=== PATIENT | female | born 1950 | race Caucasian/White ===

== ENCOUNTER 2020-05-20 12:46 | Outpatient (CLI) | payer MEDICARE, OTHER, SELFPAY ==
--- NOTE | 2020-05-20 12:53 | MM_ITS ---
WS: [id number] BILATERAL SCREENING DIGITAL MAMMOGRAM WITH CAD HISTORY: SCREENING COMPARISON: 11/24/2017 Bilateral CC and MLO views submitted. Computer aided detection analyzed. Study is compromised by limited positioning and compression. Breast composition: There are scattered areas of fibroglandular density. No suspicious masses, microc alcifications or architectural distortion. The entire breasts are not included nor positioned correct ly for this examination. MM/[place] [id number] IMPRESSION: BI-RADS: 2-Benign FOLLOW UP: 1 Year Follow-up
== END 2020-05-20 12:47 | disposition home or self-care (01) ==
LOC: RADSHAW 12:52
PROVIDERS: PCP Family Medicine; Visit Provider Family Medicine
DX: Z12.31 Encounter for screening mammogram for malignant neoplasm of breast (principal)
CPT/HCPCS: 77067

== ENCOUNTER → 2022-04-16 13:38 | Outpatient (BNVA) | payer MEDICARE, OTHER, SELFPAY | PROVIDERS: PCP Family Medicine; Visit Provider Family Medicine | DX: I48.91 Unspecified atrial fibrillation (principal); E78.5 Hyperlipidemia, unspecified; Z00.00 Encounter for general adult medical examination without abnormal findings; F84.0 Autistic disorder | CPT/HCPCS: 80053 ==

== ENCOUNTER 2023-01-03 20:32 | Emergency (ER) | payer MEDICARE, OTHER, SELFPAY ==
[2023-01-03 20:36] VITALS: BP 146/70; PULSE 66; RESP 17; TEMP 36.4; O2SAT 93
--- NOTE | 2023-01-03 20:39 | XRR_ITS ---
PROCEDURE INFORMATION: Exam: XR Chest Exam date and time: 01/03/2023 8:48 PM Age: 72 years old Clinical indication: Other: General weakness TECHNIQUE: Imaging protocol: Radiologic exam of the chest. Views: 1 view. COMPARISON: CR XR chest 1V [id number] 10/21/2016 8:33 PM FINDINGS: Lungs: No consolidation. Pleural spaces: Unremarkable. No pleural effusion. No pneumothorax. Heart/Mediastinum: No cardiomegaly. Bones/joints: No acute fracture. XR/XR chest 1V portable [id number] IMPRESSION: No acute findings.
--- NOTE | 2023-01-03 20:39 | CTR_ITS ---
PROCEDURE INFORMATION: Exam: CT Head Without Contrast Exam date and time: 01/03/2023 9:05 PM Age: 72 years old Clinical indication: Other: General weakness TECHNIQUE: Imaging protocol: Computed tomography of the head without contrast. Radiation optimization: All CT scans at this facility use at least one of these dose optimization techniques: automated exposure control; mA and/or kV adjustment per patient size (includes targeted exams where dose is matched to clinical indication); or iterative reconstruction. REPORTING DATA: Count of CT and Cardiac NM exams in prior 12 months: This patient has received 0 known CTs and 0 known cardiac nuclear medicine studies in the 12 months prior to the current study. COMPARISON: No relevant prior studies available. RADIATION DOSE METRICS: Total DLP (mGy-cm): 1023.48 FINDINGS: Brain: No hemorrhage. No edema, mass effect or midline shift. Periventricular and deep white matter hypodensities compatible with chronic microvascular ischemic changes. Cerebral ventricles: No ventriculomegaly. Paranasal sinuses: Visualized sinuses are unremarkable. No fluid levels. Mastoid air cells: No mastoid effusion. Bones/joints: No acute fracture. Soft tissues: Unremarkable. CT/CT head wo con* [id number] IMPRESSION: No acute intracranial abnormality.
--- NOTE | 2023-01-03 20:40 | W.ED.NEUROSD ---
HPI - Neuro Symptoms/Deficit General: Chief Complaint: Dizziness Stated Complaint: Staring into Space, Lethagic Time Seen by Provider: 01/03/23 20:35 Source: patient Mode of arrival: ambulatory Limitations: no limitations History of Present Illness: 72-year-old female who states she had 2 episodes today where she just stared off in space she states she has had a funny feeling in her head she denies any headache denies any chest pain. Patient denies any focal deficits denies any weakness she states she feels completely fine currently she does have a history of A-fib. Associated symptoms: Deny chest pain, headache(s), nausea or vomiting Review of Systems Const: Denies: fever(s) or chills Eyes: Denies: blurry vision or eye discomfort ENMT: Denies: throat pain or dental pain Card: Denies: chest pain Resp: Denies: dyspnea GI: Denies: abdominal pain, nausea, vomiting or diarrhea : Denies: dysuria Musc: Denies: neck pain or back pain Skin/Breast: Denies: rash Neuro: Denies: headache(s) PFSH ED PFSH: Medical History Atrial fibrillation Autism Hyperlipidemia NIH stroke score NIHSS: Level Of Consciousness - 1a: 0 Level Of Consciousness Questions - 1b: Both Correct Level Of Consciousness Commands - 1c: Both Correct Best Gaze - 2: Normal Visual Rashid - 3: No Visual Loss Facial Palsy - 4: Normal Motor Arm Right - 5: No Drift Motor Arm Left - 5: No Drift Motor Leg Right - 6: No Drift Motor Leg Left - 6: No Drift Limb Ataxia - 7: Absent Sensory - 8: Normal Best Language - 9: No Aphasia Dysarthia - 10: Normal Extinction And Inattention - 11: 0 Score: Total Score: 0 Physical Exam Const: COMMON NORMALS: no acute distress, patient oriented x3 and healthy appearing HENMT: COMMON NORMALS: normocephalic and atraumatic HEAD & SCALP: normocephalic and atraumatic Eye: COMMON NORMALS: Equal, round and reactive pupils present and EOMs intact bilaterally PUPIL: Yes Equal, round and reactive pupils present Neck/C-Spine: COMMON NORMALS: full ROM and supple Chest: COMMONS NORMALS: normal inspection of the chest and normal palpation of entire chest wall Resp: COMMON NORMALS: normal respiratory effort, No retractions, No use of accessory muscles and clear to auscultation bilaterally AUSCULTATION: clear to auscultation bilaterally Cardio: COMMON NORMALS: regular rate, regular rhythm and No murmurs present (Cardio) RATE: regular rate RHYTHM: regular rhythm GI: COMMON NORMALS: Normal to inspection, nondistended, normoactive bowel sounds present, Soft to palpation, non-tender and no masses PALPATION: Yes Soft to palpation Extremity: COMMON NORMALS: normal to inspection and full ROM Neuro: COMMON NORMALS: patient oriented x3, moves all extremities and no focal motor deficits CRANIAL NERVES: Yes CN normal except as noted Psych: COMMON NORMALS: mental status grossly normal, Normal thought process present and cooperative THOUGHT PROCESS: Normal thought process present Skin: COMMON NORMALS: no rashes or lesions noted and no wounds GENERAL SKIN EXAM: no rashes or lesions noted Course Vital Signs: Vital signs: Vital Signs Temperature 97.6 F 01/03/23 20:36 Pulse Rate 110 H 01/03/23 21:00 Respiratory Rate 17 01/03/23 20:36 Blood Pressure 146/70 01/03/23 21:00 Pulse Oximetry 97 01/03/23 21:00 Oxygen Delivery Me thod Room Air 01/03/23 20:36 MDM - Neuro Symptoms/Deficit Medical Decision Making Patient presents here with slight weakness she is well-appearing here blood work CT head is all normal she has been asymptomatic here no signs of a stroke she is stable for discharge she is follow-up with PCP and return if worsening. Lab Data 01/03/23 20:53 01/03/23 20:53 Radiology Impressions Chest X-Ray 01/03/23 20:39 IMPRESSION: No acute findings. Head CT 01/03/23 20:39 IMPRESSION: No acute intracranial abnormality. Laboratory Results WBC 9.62 10^3/uL (3.29-11.43) 01/03/23 20:53 RBC 4.40 10^6/uL (3.85-5.65) 01/03/23 20:53 Hgb 13.10 g/dL (11.27-16.99) 01/03/23 20:53 Hct 41.4 % (36-47) 01/03/23 20:53 MCV 94.1 fl (85-98) 01/03/23 20:53 MCH 29.8 pg (27-33) 01/03/23 20:53 MCHC 31.6 g/dL (30-55) 01/03/23 20:53 RDW 13.4 % (12.1-15.1) 01/03/23 20:53 Plt Count 273 10^3/cmm (157-399) 01/03/23 20:53 MPV 11.2 fL (7.4-10.4) H 01/03/23 20:53 Neut % (Auto) 59.6 % 01/03/23 20:53 Lymph % (Auto) 29.5 % 01/03/23 20:53 [place] % (Auto) 9.1 % 01/03/23 20:53 Eos % (Auto) 0.7 % 01/03/23 20:53 Baso % (Auto) 0.8 % 01/03/23 20:53 Neut # (Auto) 5.72 10^3/uL (1.8-7.7) 01/03/23 20:53 Lymph # (Auto) 2.8 10^3/uL (0.8-4.8) 01/03/23 20:53 [place] # (Auto) 0.9 10^3/uL (0.2-0.9) 01/03/23 20:53 Eos # (Auto) 0.1 10^3/uL (0.0-0.8) 01/03/23 20:53 Baso # (Auto) 0.1 10^3/uL (0.0-0.1) 01/03/23 20:53 Nucleated RBC % (auto) 0 % 01/03/23 20:53 Nucleated RBCs # 0.0 /100WBC 01/03/23 20:53 Sodium 141 mmol/L (136-145) 01/03/23 20:53 Potassium 4.6 mmol/L (3.5-5.1) 01/03/23 20:53 Chloride 103 mmol/L (98-107) 01/03/23 20:53 Carbon Dioxide 29 mmol/L (22-29) 01/03/23 20:53 Anion Gap 13.6 (5-19) 01/03/23 20:53 BUN 17 mg/dL (8-23) 01/03/23 20:53 Creatinine 0.6 mg/dL (0.5-0.9) 01/03/23 20:53 GFR Calculation 98.8 mL/min (90-130) 01/03/23 20:53 Glucose 124 mg/dL (65-115) H 01/03/23 20:53 POC Glucose 106 mg/dL (70-110) 01/03/23 21:44 Calculated Osmolality 295 mOsm/kg (285-295) 01/03/23 20:53 Calcium 9.6 mg/dL (8.5-10.5) 01/03/23 20:53 Total Bilirubin 0.2 mg/dL (0.15-1.2) 01/03/23 20:53 AST 21 U/L (0-32) 01/03/23 20:53 ALT 20 U/L (0-33) 01/03/23 20:53 Alkaline Phosphatase 61 U/L (35-105) 01/03/23 20:53 Total Protein 7.3 g/dL (6.6-8.7) 01/03/23 20:53 Albumin 4.3 g/dL (3.5-5.2) 01/03/23 20:53 Globulin 3.0 g/dL (1.3-4.6) 01/03/23 20:53 Urine Color Light yellow (Yellow) 01/03/23 21:47 Urine Appearance Clear (CLEAR) 01/03/23 21:47 Urine pH 7 (5-7) 01/03/23 21:47 Ur Specific [place] 1.005 (1.005-1.030) 01/03/23 21:47 Urine Protein Neg (Negative) 01/03/23 21:47 Urine Glucose (UA) Norm (Normal) 01/03/23 21:47 Urine Ketones Negative (Negative) 01/03/23 21:47 Urine Blood Neg (Negative) 01/03/23 21:47 Urine Nitrate Negative (Negative) 01/03/23 21:47 Urine Bilirubin Neg (Negative) 01/03/23 21:47 Urine Urobilinogen Neg mg/dL (Negative) 01/03/23 21:47 Ur Leukocyte Esterase Negative (Negative) 01/03/23 21:47 Discharge Plan Discharge Patient Disposition: Home Clinical Impression: Weakness Condition: Stable Prescriptions: No Action metoprolol succinate 25 mg tablet extended release 24 hr See Rx Instructions .ROUTE .COMPLEX Qty: 90 3RF Dose Instruction: TAKE 1 TABLET BY MOUTH EVERY DAY Rx Instructions: TAKE 1 TABLET BY MOUTH EVERY DAY aspirin [Adult Aspirin Regimen] 81 mg tablet,delayed release (DR/EC) 81 mg PO DAILY Qty: 90 0RF atorvastatin 40 mg tablet See Rx Instructions .ROUTE .COMPLEX Qty: 90 3RF Dose Instruction: TAKE 1 TABLET BY MOUTH EVERY DAY Rx Instructions: TAKE 1 TABLET BY MOUTH EVERY DAY Discharge Orders: Discharge ED (Routine); Ordered 01/03/23 Ordered By: Alina Larios Referrals: Keny Jimenez MD [Primary Care Provider] - 1-3 days Discharge Diet: Advance as tolerated Discharge Activity: Resume usual activity Patient Instructions: Weakness (ED) Coding Level of Care Code ED [employer] for Isatu Metcalf
--- NOTE | 2023-01-03 20:44 | ECG_ITS ---
[facility] Test Date: 2023-01-03 Pat Name: Mayela Martino Department: Room: Gender: Female Pediatric Immunologist: : 1950 Requested By: Alina Larios Order Number: [id number] Marimar MD: Bill Du M.D. Measurements Intervals [place] Rate: 98 P: 49 [place]: 161 QRS: 57 QRSD: 101 T: 63 QT: 356 QTc: 455 Interpretive Statements SINUS RHYTHM WITH FREQUENT SUPRAVENTRICULAR PREMATURE COMPLEXES INCOMPLETE RIGHT BUNDLE BRANCH BLOCK [90+ ms QRS DURATION, TERMINAL R IN V1/V2, 40+ ms S IN I/aVL/V4/V5/V6] ABNORMAL RHYTHM ECG Compared to ECG 10/21/2016 19:51:05 Supraventricular tachycardia no longer present ST (T wave) deviation no longer present Electronically Signed On 01-04-2023 22:32:19 CDT by Bill Du M.D. [email or web address] hospitalBiomass [email or web address]/[id number] f
[2023-01-03 21:00] VITALS: BP 146/70; PULSE 110; O2SAT 97
[2023-01-03 21:15] LABS: Basophils # 0.1 10^3/uL (0.0-0.1); Basophils % 0.8 %; Eosinophils # 0.1 10^3/uL (0.0-0.8); Eosinophils % 0.7 %; Hematocrit 41.4 % (36-47); Lymphocytes # 2.8 10^3/uL (0.8-4.8); Lymphocytes % 29.5 %; Mean Corpuscular HGB Conc 31.6 g/dL (30-55); Mean Corpuscular Hemoglobin 29.8 pg (27-33); Mean Corpuscular Volume 94.1 fl (85-98); Mean Platelet Volume 11.2 fL (7.4-10.4); Monocytes # 0.9 10^3/uL (0.2-0.9); Monocytes % 9.1 %; Neutrophils # 5.72 10^3/uL (1.8-7.7); Neutrophils % 59.6 %; Nucleated Red Blood Cells % 0 %; Platelet Count 273 10^3/cmm (157-399); Red Cell Distribution Width 13.4 % (12.1-15.1); White Blood Count 9.62 10^3/uL (3.29-11.43)
[2023-01-03 21:25] LABS: Alanine Aminotransferase 20 U/L (0-33); Albumin Level 4.3 g/dL (3.5-5.2); Alkaline Phosphatase 61 U/L (35-105); Anion Gap 13.6 (5-19); Aspartate Amino Transferase 21 U/L (0-32); Blood Urea Nitrogen 17 mg/dL (8-23); Calcium 9.6 mg/dL (8.5-10.5); Carbon Dioxide 29 mmol/L (22-29); Chloride 103 mmol/L (98-107); Glomerular Filtration Rate 98.8 mL/min (90-130); Glucose 124 mg/dL (65-115); Osmolality Calculated 295 mOsm/kg (285-295); Potassium 4.6 mmol/L (3.5-5.1); Sodium 141 mmol/L (136-145); Total Bilirubin 0.2 mg/dL (0.15-1.2); Total Protein 7.3 g/dL (6.6-8.7)
[2023-01-03 21:52] LABS: Glucose Point of Care 106 mg/dL (70-110)
[2023-01-03 22:00] LABS: Add Urine Microscopic? NO; Charge for UA Resulting for Rev
[2023-01-03 22:01] LABS: Bilirubin Urine Neg (Negative); Blood Urine Neg (Negative); Glucose Urine UA Norm (Normal); Ketones Urine Negative (Negative); Leukocyte Esterase Urine Negative (Negative); Nitrate Urine Negative (Negative); Protein Urine Neg (Negative); Specific Gravity, Urine 1.005 (1.005-1.030); Urine Appearance Clear (CLEAR); Urine Color Light yellow (Yellow); Urobilinogen Urine Neg (Negative); pH Urine 7 (5-7)
[2023-01-03 22:21] VITALS: BP 130/98; PULSE 105; O2SAT 98
== END 2023-01-03 22:23 | disposition home or self-care (01) ==
PROVIDERS: Emergency Provider Emergency Medicine; PCP Family Medicine
DX: R53.1 Weakness (principal); Z79.82 Long term (current) use of aspirin; F84.0 Autistic disorder; E78.5 Hyperlipidemia, unspecified
CPT/HCPCS: 36416; 70450; 71045; 80053; 81003; 82962; 85025; 93005; 99285

== ENCOUNTER → 2024-02-22 08:05 | Outpatient (BNVA) | payer MEDICARE, OTHER, SELFPAY | PROVIDERS: PCP Family Medicine; Visit Provider Family Medicine | DX: Z00.00 Encounter for general adult medical examination without abnormal findings (principal); R73.9 Hyperglycemia, unspecified; E78.5 Hyperlipidemia, unspecified | CPT/HCPCS: 80053; 80061; 83036 ==

== ENCOUNTER 2024-10-05 16:45 | Emergency (ER) | payer MEDICARE, OTHER, SELFPAY ==
[2024-10-05 16:50] VITALS: BP 158/85; PULSE 56; RESP 16; TEMP 36.4; O2SAT 93; BMI 21.6
--- NOTE | 2024-10-05 17:40 | XRR_ITS ---
PROCEDURE INFORMATION: Exam: XR Chest Exam date and time: 10/05/2024 6:29 PM Age: 74 years old Clinical indication: Injury or trauma; Fall; Blunt trauma (contusions or hematomas); Additional info: Fall with contusion TECHNIQUE: Imaging protocol: Radiologic exam of the chest. Views: 1 view. COMPARISON: CR XR chest 1V portable [id number] 01/03/2023 8:48 PM FINDINGS: Lungs: Unremarkable. No consolidation. Pleural spaces: Unremarkable. No pleural effusion. No pneumothorax. Heart/Mediastinum: Unremarkable. No cardiomegaly. Bones/joints: Visualized osseous structures are intact. XR/XR chest 1V portable [id number] IMPRESSION: No acute findings.
--- NOTE | 2024-10-05 17:40 | XRR_ITS ---
PROCEDURE INFORMATION: Exam: XR Left Shoulder Exam date and time: 10/05/2024 6:34 PM Age: 74 years old Clinical indication: Injury or trauma; Fall; Blunt trauma (contusions or hematomas); Shoulder; Left; Additional info: Fall, contusion TECHNIQUE: Imaging protocol: Radiologic exam of the left shoulder. Views: 2 or more views. COMPARISON: CR (CHEST, ) 10/05/2024 6:29 PM FINDINGS: Bones/joints: Comminuted fracture through the humeral head and neck. There is inferior migration of the humeral head in the glenohumeral joint space suggesting a large hemarthrosis. Soft tissues: Normal. XR/XR shoulder LT min 2V* [id number] IMPRESSION: Comminuted fracture of the humeral head and neck.
--- NOTE | 2024-10-05 17:40 | XRR_ITS ---
PROCEDURE INFORMATION: Exam: XR Left Elbow Exam date and time: 10/05/2024 7:30 PM Age: 74 years old Clinical indication: Injury or trauma; Fall; Blunt trauma (contusions or hematomas); Elbow; Left; Additional info: Fall, contusion TECHNIQUE: Imaging protocol: Radiologic exam of the left elbow. Views: 3 or more views. COMPARISON: CR (UP EXM, ) 10/05/2024 6:43 PM FINDINGS: Bones/joints: Old fracture deformity of the distal humerus with intact screws in this region. No acute fracture. Soft tissues: Normal. XR/XR elbow LT min 3V* [id number] IMPRESSION: No acute findings.
--- NOTE | 2024-10-05 17:40 | XRR_ITS ---
PROCEDURE INFORMATION: Exam: XR Left Hip Exam date and time: 10/05/2024 7:23 PM Age: 74 years old Clinical indication: Injury or trauma; Fall; Blunt trauma (contusions or hematomas); Left; Hip; Additional info: Left hip contusion, w pelvis TECHNIQUE: Imaging protocol: Radiologic exam of the left hip. Views: 2 or 3 views hip with pelvis when performed. COMPARISON: No relevant prior studies available. FINDINGS: Bones/joints: Unremarkable. No acute fracture. Soft tissues: Unremarkable. XR/XR hip LT 2-3V wo/w pel* [id number] IMPRESSION: No acute findings.
--- NOTE | 2024-10-05 17:54 | XRR_ITS ---
PROCEDURE INFORMATION: Exam: XR Left Wrist Exam date and time: 10/05/2024 6:43 PM Age: 74 years old Clinical indication: Injury or trauma; Fall; Blunt trauma (contusions or hematomas); Wrist; Left; Prior surgery; Surgery date: 6+ months; Surgery type: Fixation; Additional info: Fall contusion TECHNIQUE: Imaging protocol: Radiologic exam of the left wrist. Views: 3 or more views. COMPARISON: No relevant prior studies available. FINDINGS: Bones/joints: Intact ORIF hardware in the distal radius. No acute fracture. Soft tissues: Normal. XR/XR wrist LT min 3V* [id number] IMPRESSION: No acute findings.
--- NOTE | 2024-10-05 18:17 | ED_ITS ---
HPI - Fall 2 General: Chief Complaint: Fall Stated Complaint: FALL - LEFT ARM PAIN Time Seen by Provider: 10/05/24 17:22 History of Present Illness: Patient is a 74-year-old female that resides at [facility] residential home that had a fall earlier today. Unknown time. Patient called her family, whom called EMS. Patient was on the floor when EMS arrived and assisted to cot. She complains of pain in her left arm, left hip, left shoulder. She is in splint via EMS. Patient believes that she had a loss of her balance. Denies any LOC or any other concerns. She did not injure her head. Not on anticoagulation. Associated symptoms-after fall: Denies abdominal pain, chest pain or headache(s) Related Data Previous Rx's ?Medication ?Instructions ?Recorded aspirin 81 mg tablet,delayed 81 mg PO DAILY #90 tabs 1 06/17/21 release (Adult Aspirin Regimen) fluoxetine 20 mg capsule 20 mg PO DAILY #30 caps 11/01 07/24 metoprolol succinate 50 mg See Rx Instructions .Route 11/23/23 tablet,extended release 24 hr .COMPLEX #30 tabs atorvastatin 40 mg tablet See Rx Instructions .Route 1 .COMPLEX #90 tabs Allergies Allergy/AdvReac Type Severity Reaction Status Date / Time No Known Allergies Allergy Unverified 03/18/22 11:47 Review of Systems 2 General: Reports: 10 or more systems reviewed and unremarkable except in HPI and below Const: Denies: fever(s) or chills Eyes: Denies: change in vision or blurry vision ENMT: Denies: throat pain or odynophagia Card: Denies: chest pain or palpitations Resp: Denies: dyspnea or productive cough GI: Denies: abdominal pain, nausea or vomiting : Denies: flank pain or difficulty voiding Musc: Reports: extremity pain, joint pain, joint stiffness and limited range of motion Skin/Breast: Denies: rash or pruritus Neuro: Denies: headache(s), numbness in extremities or weakness in extremities Psych: Denies: anxiety or depression Tony/Lymph: Denies: easy bruising or easy bleeding All/Imm: Denies: urticaria or throat swelling PFSH ED 2 PFSH: Medical History Autism Hyperlipidemia Atrial fibrillation Social History Smoking and tobacco/nicotine status: unknown if used tobacco/nicotine Physical Exam 2 Const: COMMON NORMALS: no acute distress, average body habitus, patient oriented x3 and alert GENERAL APPEARANCE: cooperative and comfortable HENMT: COMMON NORMALS: normocephalic and atraumatic HEAD & SCALP: n ormocephalic and atraumatic Eye: COMMON NORMALS: Equal, round and reactive pupils present, EOMs intact bilaterally, conjunctivae normal, no scleral icterus and no papilledema C ONJUNCTIVA: Yes conjunctivae normal SCLERA: sclerae normal PUPIL: Yes Equal, round and reactive pupils present EOM: Yes EOM abnormal DIRECT OPHTHALMOSCOPY: Yes no papilledema Neck/C-Spine: COMMON NORMALS: full ROM, no lymphadenopathy, supple and no JVD GENERAL: Yes normal visual inspection, Yes trachea midline, No anterior neck swelling and No tender CERVICAL SPINE: Yes cervical ROM normal Chest: COMMONS NORMALS: normal inspection of the chest and normal palpation of entire chest wall Resp: COMMON NORMALS: normal respiratory effort, No retractions, No use of accessory muscles and clear to auscultation bilaterally EFFORT & INSPECTION: Yes able to speak in complete sentences and Yes symmetric chest movement A USCULTATION: clear to auscultation bilaterally Cardio: COMMON NORMALS: no JVD, regular rhythm, S1 normal heart sound present, S2 normal heart sound present and Peripheral pulses 2+ throughout RHYTHM: r egular rhythm HEART SOUNDS: S1 normal heart sound present and S2 normal heart sound present PERIPHERAL PULSES: Peripheral pulses 2+ throughout GI: COMMON NORMALS: Normal to inspection, nondistended, normoactive bowel sounds present and Soft to palpation INSPECTION: Yes normal to inspection AUSCULTATION: Yes normoactive bowel sounds PALPATION: Yes Soft to palpation : COMMON NORMALS: Yes no CVA tenderness BLADDER/KIDNEY EXAM: Yes no CVA tenderness Back/Pelvis: COMMON NORMALS: no CVA tenderness Extremity: GENERAL: Yes normal exam except as noted LEFT UPPER EXTREMITY: Y es shoulder joint Left shoulder joint: No ROM and Yes neurovascular exam, Yes clavicle and Yes wrist (pain with axilla load) LEFT LOWER EXTREMITY: Yes hip joint (no pain on palpation) Neuro: COMMON NORMALS: patient oriented x3 and CN's II-XII intact bilaterally SENSORIUM/ORIENTATION: Yes alert Psych: COMMON NORMALS: mental status grossly normal, Normal thought process present and speech normal ATTITUDE: Yes calm SPEECH: Yes normal speech THOUGHT PROCESS: Normal thought process present Skin: NAILS: normal Course 2 Vital Signs: Vital signs: Vital Signs Temperature 97.6 F 10/05/24 16:50 Pulse Rate 56 L 10/05/24 16:50 Respiratory Rate 16 10/05/24 16:50 Blood Pressure 158/85 10/05/24 16:50 Pulse Oximetry 93 10/05/24 16:50 Oxygen Delivery Me thod Room Air 10/05/24 16:50 MDM - Fall Medical Decision Making 74-year-old woman with slip and fall, as she was getting up, lost her balance. Required sitting in the floor until EMS arrived. She has pain to her left shoulder, left elbow, and left wrist. No significant pain on abdominal examination/hip, however given patient's concern we will x-ray. She does not have LOC, was not dazed, remembers all the events, and is not on anticoagulation. No need for CT of head or C-spine at this time. Will x-ray current concerns. X-ray shows left comminuted humeral head. Discussed with on-call orthopedist, recommends sling, follow-up in 7-10 days. Patient's [id number]'s concern is patient lives alone. No additional concerns that patient would need observation or inpatient criteria. She has not been able to void due to pain. Offered analgesic. [id number] would like analgesic to wait until patient is leaving. Patient does have association of leukocytosis which could be from stress demargination is most likely. No reason to hold patient with current vital signs/how patient looks without any red flags for septic workup. Urine analysis can be done on an outpatient basis. Lab Data 10/05/24 20:35 10/05/24 20:35 Radiology Impressions Chest X-Ray 10/05/24 17:40 IMPRESSION: No acute findings. Elbow X-Ray 10/05/24 17:40 IMPRESSION: No acute findings. Hip/Pelvis X-Ray 10/05/24 17:40 IMPRESSION: No acute findings. Shoulder X-Ray 10/05/24 17:40 IMPRESSION: Comminuted fracture of the humeral head and neck. Wrist X-Ray 10/05/24 17:54 IMPRESSION: No acute findings. Laboratory Results WBC 22.57 10^3/uL (3.29-11.43) H 10/05/24 20:35 RBC 4.45 10^6/uL (3.85-5.65) 10/05/24 20:35 Hgb 13.20 g/dL (11.27-16.99) 10/05/24 20:35 Hct 42.3 % (36-47) 10/05/24 20: MCV 95.1 fl (85-98) 10/05/24 20: MCH 29.7 pg (27-33) 10/05/24 20: MCHC 31.2 g/dL (30-55) 10/05/24: RDW 13.4 % (12.1-15.1) 10/05/24 20:35 Plt Count 302 10^3/cmm (157-399) 10/05/24 20: MPV 11.4 fL (7.4-10.4) H 10/05/24 20:35 Neut % (Auto) 90.8 % 10/05/24 20:35 Lymph % (Auto) 4.5 % 10/05/24 20:35 [place] % (Auto) 3.5 % 10/05/24 20:35 Eos % (Auto) 0.0 % 10/05/24 20:35 Baso % (Auto) 0.4 % 10/05/24 20:35 Neut # (Auto) 20.50 10^3/uL (1.8-7.7) H 10/05/24 20:35 Lymph # (Auto) 1.0 10^3/uL (0.8-4.8) 10/05/24 20:35 [place] # (Auto) 0.8 10^3/uL (0.2-0.9) 10/05/24 20:35 Eos # (Auto) 0.0 10^3/uL (0.0-0.8) 10/05/24 20:35 Baso # (Auto) 0.1 10^3/uL (0.0-0.1) 10/05/24 20:35 Nucleated RBC % (auto) 0 % 10/05/24 20:35 Nucleated RBCs # 0.0 /100WBC 10/05/24 20:35 Sodium 138 mmol/L (136-145) 10/05/24 20:35 Potassium 4.2 mmol/L (3.5-5.1) 10/05/24 20:35 Chloride 101 mmol/L (98-107) 10/05/24 20:35 Carbon Dioxide 25 mmol/L (22-29) 10/05/24 20:35 Anion Gap 16.2 (5-19) 10/05/24 20:35 BUN 22 mg/dL (8-23) 10/05/24 20:35 Creatinine 0.6 mg/dL (0.5-0.9) 10/05/24 20:35 GFR Calculation Not Reportable 10/05/24 20:35 Glucose 133 mg/dL (65-115) H 10/05/24 20:35 Calculated Osmolality 291 mOsm/kg (285-295) 10/05/24 20:35 Calcium 9.9 mg/dL (8.5-10.5) 10/05/24 20:35 Total Bilirubin 0.5 mg/dL (0.15-1.2) 10/05/24 20:35 AST 24 U/L (0-32) 10/05/24 20:35 ALT 26 U/L (0-33) 10/05/24 20:35 Alkaline Phosphatase 70 U/L (35-105) 10/05/24 20:35 Total Protein 8.0 g/dL (6.6-8.7) 10/05/24 20:35 Albumin 4.4 g/dL (3.5-5.2) 10/05/24 20:35 Globulin 3.6 g/dL (1.3-4.6) 10/05/24 20:35 XR interpretation done by ED provider, pending radiology final review ED provider radiology interpretation(s): Comminuted left humeral head fracture. Discharge Plan Discharge Patient Disposition: Home Clinical Impression: Closed comminuted left humeral fracture Qualifiers: Encounter type: initial encounter Humerus Location: shaft Fracture alignment: d isplaced Qualified Code(s): S42.352A - Displaced comminuted fracture of shaft of humerus, left arm, initial encounter for closed fracture Leukocytosis Qualifiers: Leukocytosis type: leukemoid reaction Qualified Code(s): D72.823 - Leukemoid reaction Condition: Stable Prescriptions: No Action aspirin [Adult Aspirin Regimen] 81 mg tablet,delayed release (DR/EC) 81 mg PO DAILY Qty: 90 0RF atorvastatin 40 mg tablet See Rx Instructions .ROUTE .COMPLEX Qty: 90 3RF Dose Instruction: TAKE 1 TABLET BY MOUTH EVERY DAY Rx Instructions: TAKE 1 TABLET BY MOUTH EVERY DAY fluoxetine 20 mg capsule 20 mg PO DAILY Qty: 30 11RF metoprolol succinate 50 mg tablet extended release 24 hr See Rx Instructions .ROUTE .COMPLEX Qty: 30 11RF Dose Instruction: TAKE 1 TABLET BY MOUTH EVERY DAY Rx Instructions: TAKE 1 TABLET BY MOUTH EVERY DAY Discharge Orders: Discharge ED (Routine); Ordered 10/05/24 Ordered By: Maribel Guerra Referrals: Keny Jimenez MD [Primary Care Provider, Family Practice] Patient Instructions: Opioid Safety, Pain Management Activity Restrictions/Additional Instructions: Add Senna S to Miralax with pain medication Follow up with Orthopedics in 7-10 days Wear the sling as advised Follow-up with primary care physician Return to ED with further issues Print Language: Serbian Coding Level of Care Code ED Preforming Machine Operator for Isatu Metcalf
[2024-10-05 21:05] LABS: Basophils # 0.1 10^3/uL (0.0-0.1); Basophils % 0.4 %; Hematocrit 42.3 % (36-47); Lymphocytes % 4.5 %; Mean Corpuscular HGB Conc 31.2 g/dL (30-55); Mean Corpuscular Hemoglobin 29.7 pg (27-33); Mean Corpuscular Volume 95.1 fl (85-98); Mean Platelet Volume 11.4 fL (7.4-10.4); Monocytes # 0.8 10^3/uL (0.2-0.9); Monocytes % 3.5 %; Neutrophils % 90.8 %; Nucleated Red Blood Cells % 0 %; Platelet Count 302 10^3/cmm (157-399); Red Blood Count 4.45 10^6/uL (3.85-5.65); Red Cell Distribution Width 13.4 % (12.1-15.1); White Blood Count 22.57 10^3/uL (3.29-11.43)
[2024-10-05 21:07] LABS: Alanine Aminotransferase 26 U/L (0-33); Albumin Level 4.4 g/dL (3.5-5.2); Alkaline Phosphatase 70 U/L (35-105); Aspartate Amino Transferase 24 U/L (0-32); Blood Urea Nitrogen 22 mg/dL (8-23); Calcium 9.9 mg/dL (8.5-10.5); Carbon Dioxide 25 mmol/L (22-29); Chloride 101 mmol/L (98-107); Creatinine Clr Calc Pharmacy 57.9874; Globulin 3.6 g/dL (1.3-4.6); Glucose 133 mg/dL (65-115); Osmolality Calculated 291 mOsm/kg (285-295); Sodium 138 mmol/L (136-145); Total Bilirubin 0.5 mg/dL (0.15-1.2)
[2024-10-05 21:11] LABS: Anion Gap 16.2 (5-19); Potassium 4.2 mmol/L (3.5-5.1)
[2024-10-05] MEDS: HYDROcodone-acetaminophen 10-325 mg Tablet 1 TAB PO (21:36)
== END 2024-10-05 22:42 | disposition home or self-care (01) ==
PROVIDERS: Emergency Provider Physician Assistant; PCP Family Medicine
DX: S42.352A Displaced comminuted fracture of shaft of humerus, left arm, initial encounter for closed fracture (principal); Z00-Z99 Factors influencing health status and contact with health services; Z79.82 Long term (current) use of aspirin; E78.5 Hyperlipidemia, unspecified; W19.XXXA Unspecified fall, initial encounter
CPT/HCPCS: 36415; 71045; 73030; 73080; 73110; 73502; 80053; 85025; 99284; J9999

== ENCOUNTER 2024-10-07 10:59 | Inpatient (IN) | payer MEDICARE, OTHER, SELFPAY ==
[2024-10-07] VITALS (20 sets, daily range): BP systolic 106–165; BP diastolic 54–86; PULSE 64–88; RESP 16–28; TEMP 36.1–36.7; O2SAT 88–98; BMI 26.6
--- NOTE | 2024-10-07 11:13 | XRR_ITS ---
PROCEDURE INFORMATION: Exam: XR Left Humerus Exam date and time: 10/07/2024 11:34 AM Age: 74 years old Clinical indication: Injury or trauma; Fall; Blunt trauma (contusions or hematomas); Arm, upper; Left; Prior surgery; Surgery date: 6+ months; Surgery type: Lt elbow; Additional info: Repeated fall TECHNIQUE: Imaging protocol: Radiologic exam of the left humerus. Views: 2 or more views. COMPARISON: CR (CHEST, ) 10/05/2024 6:34 PM FINDINGS: Bones/joints: Comminuted displaced fracture of the humeral head the distal humerus shows the [address] No additional bone abnormality of the left humerus is visible. Soft tissues: Soft tissue fusion is seen in the shoulder likely associated with fracture. XR/[place] [id number] IMPRESSION: No acute findings.
--- NOTE | 2024-10-07 11:20 | XRR_ITS ---
PROCEDURE INFORMATION: Exam: XR Left Hip Exam date and time: 10/07/2024 11:23 AM Age: 74 years old Clinical indication: Injury or trauma; Fall; Blunt trauma (contusions or hematomas); Left; Hip; Additional info: Fall, mobility issues TECHNIQUE: Imaging protocol: Radiologic exam of the left hip. Views: 2 or 3 views hip with pelvis when performed. COMPARISON: CR (PELVIS, ) 10/05/2024 7:23 PM FINDINGS: Bones/joints: Unremarkable. No acute fracture. Soft tissues: Unremarkable. XR/XR hip LT 2-3V wo/w pel* [id number] IMPRESSION: No acute findings.
--- NOTE | 2024-10-07 11:22 | W.ED.EXTPRO ---
HPI - Extremity Problem General: Chief complaint: ER Hold Stated complaint: left arm pain s/p fall Time Seen by Provider: 10/07/24 11:06 History of Present Illness: 74-year-old female presents via EMS. Patient has cognitive issues so HPI was difficult and had to be obtained from family member. Patient has a history of repeated falls. Patient fell last and suffered a fracture of her left upper arm. They report when she fell it thinks she may have landed on it again and was concerned about that. He also reports that she has had mobility issues since with inability to ambulate due to pain in her right hip. They report that prior to the fall couple days ago she was ambulating without difficulty and since then she has had significant difficulty with a couple falls. Associated symptoms: Deny chest pain or fever(s) Related Data Home Medications ?Medication ?Instructions ?Recorded ?Confirmed atorvastatin 40 mg tablet 40 mg PO DAILY 10/07/24 10/07/24 metoprolol succinate 50 mg 50 mg PO DAILY 10/07/24 10/07/24 tablet,extended release 24 hr Previous Rx's ?Medication ?Instructions ?Recorded aspirin 81 mg tablet,delayed 81 mg PO DAILY #90 tabs 04/16/22 release (Adult Aspirin Regimen) fluoxetine 20 mg capsule 20 mg PO DAILY #30 caps 11/23/23 tramadol 37.5 mg-acetaminophen 325 1 tab PO Q6H PRN pain 5 days #20 /05/25 mg tablet tabs Allergies Allergy/AdvReac Type Severity Reaction Status Date / Time No Known Allergies Allergy Unverified 03/18/22 11:47 Review of Systems Const: Reports: other (Please see HPI); Denies: fever(s) or chills Card: Denies: chest pain Resp: Denies: dyspnea GI: Denies: abdominal pain, nausea or vomiting Musc: Reports: other (Please see HPI) Psych: Denies: anxiety or depression PFSH ED PFSH: Medical History Autism Hyperlipidemia Atrial fibrillation Social History Smoking and tobacco/nicotine status: unknown if used tobacco/nicotine Physical Exam Const: COMMON NORMALS: no acute distress OTHER: Baseline mentation Resp: COMMON NORMALS: normal respiratory effort and No use of accessory muscles Cardio: COMMON NORMALS: regular rate and regular rhythm RATE: regular rate RHYTHM: regular rhythm Extremity: NARRATIVE EXTREMITY EXAM: Left arm in sling and Ori splint. Tenderness right hip no obvious deformity noted in hip or leg Neuro: OTHER: Baseline mentation Psych: COMMON NORMALS: cooperative OTHER: Baseline mentation with known cognitive decline Skin: OTHER: Bruising left upper arm Course Vital Signs: Vital signs: Vital Signs Temperature 98.1 F 10/07/24 11:00 Pulse Rate 68 10/07/24 14:30 Respiratory Rate 16 10/07/24 11:00 Blood Pressure 165/64 10/07/24 14:30 Pulse Oximetry 94 10/07/24 14:30 Oxygen Delivery Me thod Room Air 10/07/24 16:08 MDM - Extremity (Nontraumatic) Medical Decision Making Patient's diagnostic studies were ordered and reviewed. Patient x-rays of her humerus showed no acute findings. I did have concerns of a pubic fracture based on x-ray so I did obtain a CT that showed an acute pubic fracture. Patient is having some ambulation issues due to pain along with concerns due to some dementia. Patient will be admitted for PT OT, pain control to Dr. Summers, hospitalist. Hospitalist did request a CT head which was obtained and shows no acute findings. Patient was stable upon admission. Lab Data 10/07/24 11:25 10/07/24 11:25 Radiology Impressions Humerus X-Ray 10/07/24 11:13 IMPRESSION: No acute findings. Hip/Pelvis X-Ray 10/07/24 11:20 IMPRESSION: No acute findings. Pelvis CT 10/07/24 12:43 IMPRESSION: 1. Displaced fracture left pubic bone. 2. Otherwise no additional bony abnormalities. 3. Diverticulosis of the sigmoid colon. Head CT 10/07/24 14:02 IMPRESSION: No acute intracranial abnormality. Laboratory Results WBC 13.86 10^3/uL (3.29-11.43) H 10/07/24 11:25 RBC 3.59 10^6/uL (3.85-5.65) L 10/07/24 11:25 Hgb 10.70 g/dL (11.27-16.99) L 10/07/24 11:25 Hct 33.6 % (36-47) L 10/07/24 11:25 MCV 93.6 fl (85-98) 10/07/24 11:25 MCH 29.8 pg (27-33) 10/07/24 11:25 MCHC 31.8 g/dL (30-55) 10/07/24 11:25 RDW 14.0 % (12.1-15.1) 10/07/24 11:25 Plt Count 221 10^3/cmm (157-399) 10/07/24 11:25 MPV 11.2 fL (7.4-10.4) H 10/07/24 11:25 Neut % (Auto) 82.2 % 10/07/24 11:25 Lymph % (Auto) 9.6 % 10/07/24 11:25 [place] % (Auto) 6.6 % 10/07/24 11:25 Eos % (Auto) 0.8 % 10/07/24 11:25 Baso % (Auto) 0.4 % 10/07/24 11:25 Neut # (Auto) 11.39 10^3/uL (1.8-7.7) H 10/07/24 11:25 Lymph # (Auto) 1.3 10^3/uL (0.8-4.8) 10/07/24 11:25 [place] # (Auto) 0.9 10^3/uL (0.2-0.9) 10/07/24 11:25 Eos # (Auto) 0.1 10^3/uL (0.0-0.8) 10/07/24 11:25 Baso # (Auto) 0.1 10^3/uL (0.0-0.1) 10/07/24 11:25 Nucleated RBC % (auto) 0 % 10/07/24 11:25 Nucleated RBCs # 0.0 /100WBC 10/07/24 11:25 Sodium 137 mmol/L (136-145) 10/07/24 11:25 Potassium 3.6 mmol/L (3.5-5.1) 10/07/24 11:25 Chloride 102 mmol/L (98-107) 10/07/24 11:25 Carbon Dioxide 27 mmol/L (22-29) 10/07/24 11:25 Anion Gap 11.6 (5-19) 10/07/24 11:25 BUN 29 mg/dL (8-23) H 10/07/24 11:25 Creatinine 0.9 mg/dL (0.5-0.9) 10/07/24 11:25 GFR Calculation Not Reportable 10/07/24 11:25 Glucose 154 mg/dL (65-115) H 10/07/24 11:25 Calculated Osmolality 293 mOsm/kg (285-295) 10/07/24 11:25 Calcium 9.3 mg/dL (8.5-10.5) 10/07/24 11:25 Total Bilirubin 0.5 mg/dL (0.15-1.2) 10/07/24 11:25 AST 16 U/L (0-32) 10/07/24 11:25 ALT 16 U/L (0-33) 10/07/24 11:25 Alkaline Phosphatase 55 U/L (35-105) 10/07/24 11:25 Total Protein 6.8 g/dL (6.6-8.7) 10/07/24 11:25 Albumin 3.6 g/dL (3.5-5.2) 10/07/24 11:25 Globulin 3.2 g/dL (1.3-4.6) 10/07/24 11:25 Urine Color Yellow (Yellow) 10/07/24 12:43 Urine Appearance Clear (CLEAR) 10/07/24 12:43 Urine pH 5.5 (5-7) 10/07/24 12:43 Ur Specific [place] 1.026 (1.005-1.030) 10/07/24 12:43 Urine Protein Trace (Negative) A 10/07/24 12:43 Urine Glucose (UA) Trace (Normal) H 10/07/24 12:43 Urine Ketones Trace (Negative) 10/07/24 12:43 Urine Blood Negative (Negative) 10/07/24 12:43 Urine Nitrate Negative (Negative) 10/07/24 12:43 Urine Bilirubin Negative (Negative) 10/07/24 12:43 Urine Urobilinogen 1.0 mg/dL (Negative) 10/07/24 12:43 Ur Leukocyte Esterase Negative (Negative) 10/07/24 12:43 Urine RBC 0-2 /hpf (0-2) 10/07/24 12:43 Urine WBC 0-5 /hpf (0-5) 10/07/24 12:43 Ur Squamous Epith Cells 0-5 /hpf (0-5) 10/07/24 12:43 Amorphous Sediment Not Reportable 10/07/24 12:43 Urine Bacteria None seen /hpf (NONE) 10/07/24 12:43 Hyaline Casts 11.97 /lpf 10/07/24 12:43 All radiology interpretation(s) finalized by discharge Discharge Plan Discharge Patient Disposition: Admitted As Inpatient Admit Provider: Abhilash Summers Clinical Impression: Pubic bone fracture, Fracture of humerus, Difficulty in walking, Age-related cognitive decline Condition: Stable Coding Level of Care Code ED [employer] Finisher for Isatu Metcalf
[2024-10-07 11:31] LABS: Basophils # 0.1 10^3/uL (0.0-0.1); Basophils % 0.4 %; Eosinophils # 0.1 10^3/uL (0.0-0.8); Eosinophils % 0.8 %; Hematocrit 33.6 % (36-47); Lymphocytes # 1.3 10^3/uL (0.8-4.8); Lymphocytes % 9.6 %; Mean Corpuscular HGB Conc 31.8 g/dL (30-55); Mean Corpuscular Hemoglobin 29.8 pg (27-33); Mean Corpuscular Volume 93.6 fl (85-98); Mean Platelet Volume 11.2 fL (7.4-10.4); Monocytes # 0.9 10^3/uL (0.2-0.9); Monocytes % 6.6 %; Neutrophils # 11.39 10^3/uL (1.8-7.7); Neutrophils % 82.2 %; Nucleated Red Blood Cells % 0 %; Platelet Count 221 10^3/cmm (157-399); Red Blood Count 3.59 10^6/uL (3.85-5.65); White Blood Count 13.86 10^3/uL (3.29-11.43)
[2024-10-07 11:49] LABS: Alanine Aminotransferase 16 U/L (0-33); Albumin Level 3.6 g/dL (3.5-5.2); Alkaline Phosphatase 55 U/L (35-105); Anion Gap 11.6 (5-19); Aspartate Amino Transferase 16 U/L (0-32); Blood Urea Nitrogen 29 mg/dL (8-23); Calcium 9.3 mg/dL (8.5-10.5); Carbon Dioxide 27 mmol/L (22-29); Chloride 102 mmol/L (98-107); Creatinine Clr Calc Pharmacy 56.3996; Globulin 3.2 g/dL (1.3-4.6); Glucose 154 mg/dL (65-115); Osmolality Calculated 293 mOsm/kg (285-295); Potassium 3.6 mmol/L (3.5-5.1); Sodium 137 mmol/L (136-145); Total Bilirubin 0.5 mg/dL (0.15-1.2); Total Protein 6.8 g/dL (6.6-8.7)
[2024-10-07] MEDS: sodium chloride 0.9% 500 ML IV (12:10)
--- NOTE | 2024-10-07 12:24 | PC.PHAR ---
Family member sets up pill planner scheduler. Pt does not know what medications she takes.
--- NOTE | 2024-10-07 12:43 | CTR_ITS ---
PROCEDURE INFORMATION: Exam: CT Pelvis Without Contrast, Skeleton Exam date and time: 10/07/2024 1:00 PM Age: 74 years old Clinical indication: Injury or trauma; Fall; Blunt trauma (contusions or hematomas); Bilateral; Pelvic region; Additional info: Pelvic/bilat hip pain, fall, difficulty bearing weight TECHNIQUE: Imaging protocol: Computed tomography of the pelvis without contrast. Exam focused on the skeleton. Radiation optimization: All CT scans at this facility use at least one of these dose optimization techniques: automated exposure control; mA and/or kV adjustment per patient size (includes targeted exams where dose is matched to clinical indication); or iterative reconstruction. COMPARISON: CR (PELVIS, ) 10/07/2024 11:23 AM RADIATION DOSE METRICS: Total DLP (mGy-cm): 288.25 FINDINGS: Reproductive: The uterus shows calcified fibroids Bones/joints: There is a displaced fracture left pubic bone no additional bony abnormalities are seen in the pelvis.. No dislocation. Soft tissues: Diffuse diverticulosis is seen in the sigmoid colon. CT/CT bony pelvis [id number] IMPRESSION: 1. Displaced fracture left pubic bone. 2. Otherwise no additional bony abnormalities. 3. Diverticulosis of the sigmoid colon.
[2024-10-07 13:14] LABS: Bilirubin Urine Negative (Negative); Blood Urine Negative (Negative); Glucose Urine UA Trace (Normal); Ketones Urine Trace (Negative); Leukocyte Esterase Urine Negative (Negative); Nitrate Urine Negative (Negative); Protein Urine Trace (Negative); Specific Gravity, Urine 1.026 (1.005-1.030); Urine Appearance Clear (CLEAR); Urine Color Yellow (Yellow); pH Urine 5.5 (5-7)
[2024-10-07 13:20] LABS: Add Urine Microscopic? YES; Bacteria Urine None Seen /hpf; Hyaline Casts Urine 11.97 /lpf; RBC Urine 0-2 /hpf (0-2); Squamous Epithelial Cell Urine 0-5 /hpf (0-5); WBC Urine 0-5 /hpf (0-5)
[2024-10-07 13:46] LABS: UA Slide Review UA Slide Review Perf
--- NOTE | 2024-10-07 14:02 | CTR_ITS ---
PROCEDURE INFORMATION: Exam: CT Head Without Contrast Exam date and time: 10/07/2024 2:11 PM Age: 74 years old Clinical indication: Injury or trauma; Fall; Blunt trauma (contusions or hematomas); Additional info: Fall/ per hospitalist TECHNIQUE: Imaging protocol: Computed tomography of the head without contrast. Radiation optimization: All CT scans at this facility use at least one of these dose optimization techniques: automated exposure control; mA and/or kV adjustment per patient size (includes targeted exams where dose is matched to clinical indication); or iterative reconstruction. COMPARISON: CT head wo con* [id number] 01/03/2023 9:05 PM RADIATION DOSE METRICS: Total DLP (mGy-cm): 1087.48 FINDINGS: Brain: Normal. No hemorrhage. Unremarkable white matter. No mass effect. Cerebral ventricles: No ventriculomegaly. Paranasal sinuses: Visualized sinuses are unremarkable. No fluid levels. Mastoid air cells: Visualized mastoid air cells are well aerated. Bones: Unremarkable. No acute fracture. Soft tissues: Unremarkable. CT/CT head wo con* [id number] IMPRESSION: No acute intracranial abnormality.
--- NOTE | 2024-10-07 15:14 | PM.HP ---
Providers/Chief Complaint Admitting Physician: Abhilash Summers MD Primary Care Provider: Keny Jimenez MD Chief Complaint: left arm pain s/p fall History of Present Illness Ms Mayela Martino is a 74 year old female with PMH of cognitive impairment who presents for further evaluation right hip pain after a fall last . History from the patient is limited due to cognitive disability. Per reports, patient has had a history of repeated falls. She was seen in the ER last for a fall where she was found to have a fractured humerus which was put in a sling. Since then her family members noticed that she has not been able to ambulate and has been reporting right hip pain.No reports of fever, chills, chest pain, shortness of breath, abdominal pain, nausea, vomiting or any other symptoms. In the ER, CT of the pelvis showed a displaced left pubic bone fracture. CT head negative for any acute process. Review of Systems General: Reports: 10 or more systems reviewed and unremarkable except in HPI and below Const: Denies: fever(s) Card: Denies: chest pain Resp: Denies: dyspnea GI: Denies: abdominal pain, nausea or vomiting Medications/Allergies Home Medications ?Medication ?Instructions ?Recorded ?Confirmed ?Last Taken ?Type aspirin 81 mg tablet,delayed 81 mg PO DAILY #90 tabs 04/16/22 10/07/24 10/06/24 Rx release (Adult Aspirin Regimen) fluoxetine 20 mg capsule 20 mg PO DAILY #30 caps 11/23/23 10/07/24 10/07/24 Rx tramadol 37.5 mg-acetaminophen 325 1 tab PO Q6H PRN pain 5 days #20 10/05/24 10/07/24 10/07/24 Rx mg tablet tabs atorvastatin 40 mg tablet 40 mg PO DAILY 10/07/24 10/07/24 10/07/24 History metoprolol succinate 50 mg 50 mg PO DAILY 10/07/24 10/07/24 10/07/24 History tablet,extended release 24 hr Allergies Allergy/AdvReac Type Severity Reaction Status Date / Time No Known Allergies Allergy Unverified 03/18/22 11:47 PFSH Acute PFSH: Medical History Autism Hyperlipidemia Atrial fibrillation Social History Smoking and tobacco/nicotine status: unknown if used tobacco/nicotine Vitals/I&O/Wt Last Vital Signs Temp 98.1 F 10/07/24 11:00 Pulse 68 10/07/24 14:30 Resp 16 10/07/24 11:00 BP 165/64 10/07/24 14:30 Pulse Ox 94 10/07/24 14:30 O2 Del Method Room Air 10/07/24 14:30 Weight last 48 hrs Weight 72.575 kg Physical Exam Narrative: General -Awake, alert , no acute distress HEENT-normocephalic, atraumatic, neck is supple Lungs-clear to auscultation bilaterally, no wheezes or crackles CVS -S1-S2, regular rate and rhythm Abdomen -soft, nontender, normal bowel sounds Extremities-no pedal edema. Left upper extremity in sling Neurology -No obvious gross focal deficits Data 10/07/24 11:25 10/07/24 11:25 A&P Assessment and plan (1) Age-related cognitive decline: (2) Difficulty in walking: (3) Fracture of humerus: (4) Pubic bone fracture: (5) Leukocytosis: (6) Atrial fibrillation: (7) Hyperlipidemia: Plan # Mechanical fall # Fracture of left humerus # Displaced left pubic bone fracture - Patient sustained the above fractures after mechanical fall at home - CT head shows no acute process - Left upper extremity placed in a sling - Orthopedic surgery consulted - Continue analgesia, other supportive care - PT OT evaluation after orthopedic surgery evaluation. # History of atrial fibrillation - Patient is not chronically anticoagulated - Continue metoprolol, aspirin # History of hyperlipidemia - Continue statin # Leukocytosis - Possibly stress reaction, trending down from 10/05 - UA negative for UTI - Continue to monitor PDMP PDMP Reviewed: Not Reviewed Attestations Medical Necessity Statement*: Patient admitted to inpatient status for evaluation of fractures. Her care is expected to cross 2 midnights Coding Level of Care Code Acute Code for Chg Fwd Diagnoses Age-related cognitive decline R41.81 Difficulty in walking R26.2 Fracture of humerus S42.309A Pubic bone fracture S32.509A Leukocytosis D72.823 Leukocytosis type: leukemoid reaction Atrial fibrillation I48.91 Hyperlipidemia E78.5
[2024-10-07] MEDS: acetaminophen 325 mg Tablet PO (15:52)
[2024-10-07] MEDS: TRAMadol 50 mg Tablet 25 MG PO (15:52)
--- NOTE | 2024-10-07 17:05 | PM.CONSULT ---
Providers/Reason For Consult Consulting Physician/Specialty*: Sanjiv Avilez MD Orthopedic surgery Reason for Consult*: Fracture proximal left humerus, left superior ramus fracture of the pelvis Attending Physician: Abhilash Summers MD Primary Care Provider: Keny Jimenez MD History of Present Illness History of Present Illness Mayela Martino is a 74 year old female Review of Systems General: Reports: 10 or more systems reviewed and unremarkable except in HPI and below Const: Reports: other (Please see HPI); Denies: fever(s) or chills Card: Denies: chest pain Resp: Denies: dyspnea GI: Denies: abdominal pain, nausea or vomiting Musc: Reports: other (Please see HPI) Psych: Denies: anxiety or depression Medications/Allergies Home Medications ?Medication ?Instructions ?Recorded ?Confirmed ?Last Taken ?Type aspirin 81 mg tablet,delayed 81 mg PO DAILY #90 tabs 04/16/22 10/07/24 10/06/24 Rx release (Adult Aspirin Regimen) fluoxetine 20 mg capsule 20 mg PO DAILY #30 caps 11/23/23 10/07/24 10/07/24 Rx tramadol 37.5 mg-acetaminophen 325 1 tab PO Q6H PRN pain 5 days #20 10/05/24 10/07/24 10/07/24 Rx mg tablet tabs atorvastatin 40 mg tablet 40 mg PO DAILY 10/07/24 10/07/24 10/07/24 History metoprolol succinate 50 mg 50 mg PO DAILY 10/07/24 10/07/24 10/07/24 History tablet,extended release 24 hr Allergies Allergy/AdvReac Type Severity Reaction Status Date / Time No Known Allergies Allergy Unverified 03/18/22 11:47 PFSH Acute PFSH: Medical History Autism Hyperlipidemia Atrial fibrillation Social History Smoking and tobacco/nicotine status: unknown if used tobacco/nicotine Vitals/I&O/Wt Last Vital Signs Temp 98.1 F 10/07/24 11:00 Pulse 68 10/07/24 14:30 Resp 16 10/07/24 11:00 BP 165/64 10/07/24 14:30 Pulse Ox 94 10/07/24 14:30 O2 Del Method Room Air 10/07/24 16:08 10/07/24 10/07/24 10/07/24 06:59 14:59 22:59 Intake Total 500 / 500 20 / 520 Balance 500 / 500 20 / 520 Weight last 48 hrs Weight 160 lb Physical Exam Narrative: This will be done once patient reaches the floor Data 10/07/24 11:25 10/07/24 11:25 Other data: I have reviewed x-rays demonstrating a proximal left humerus fracture was displaced and shortened but humeral head still appears to be aligned with the glenoid. I reviewed the CT scan demonstrating a superior ramus fracture of the left hemipelvis. A&P Assessment and plan (1) Fracture of humerus: Patient with proximal humerus fracture that is displaced but humeral head still aligned with glenoid, some what change since original x-rays 2 days ago though x-rays are not true internal/external rotational views (2) Pubic bone fracture: Patient with left superior ramus fracture of the left hemipelvis. Minimally displaced Plan Plan at this time is conservative measures. As for the pubic fracture I would leave her partial the nonweightbearing on the side. Due to her left shoulder injury as well as her dementia and multiple falls I would continue just wheelchair mobility. She may do transfers with assistance but no ambulation at this time. As for the humerus she should be an arm sling that allows her arm to dangle and trying to allow gravity to pull the fracture fragments closer to reduced position. This may take up to 2 weeks. If patient will not use arm sling shoulder immobilizer may be necessary. Due to her age and her inability to follow instructions surgery is very unlikely on this proximal humerus. PDMP PDMP Reviewed: Not Reviewed Consult Attestations Medical Necessity Statement: Need for pain control and assistance with ADLs Coding Level of Care Code Critical Care >/= 30 minutes Diagnoses Fracture of humerus S42.309A Encounter type: initial encounter Humerus Location: proximal Fracture type: closed Other closed fracture of left pubis, initial encounter S32.592A Encounter type: initial encounter Sublocation of pubis: other portion of pubis Fracture type: closed Laterality: left
[2024-10-07 17:46] LABS: Influenza A NEGATIVE (Negative); Influenza B NEGATIVE (Negative); Respiratory Syncytial Virus Ce NEGATIVE (Negative); SARS-CoV-2 PCR NEGATIVE (Negative)
[2024-10-07] MEDS: heparin 5,000 unit/mL INJ 1 mL 5000 UNIT SUBCUT (18:50)
[2024-10-08] VITALS (43 sets, daily range): BP systolic 79–163; BP diastolic 39–114; PULSE 61–114; RESP 12–34; TEMP 36.1–37.6; O2SAT 85–100
[2024-10-08] MEDS: heparin 5,000 unit/mL INJ 1 mL 5000 UNIT SUBCUT ×3 (02:20→18:37)
[2024-10-08 05:58] LABS: Basophils # 0.1 10^3/uL (0.0-0.1); Basophils % 0.5 %; Eosinophils # 0.1 10^3/uL (0.0-0.8); Eosinophils % 0.6 %; Hematocrit 30.8 % (36-47); Lymphocytes # 1.5 10^3/uL (0.8-4.8); Lymphocytes % 9.7 %; Mean Corpuscular HGB Conc 31.2 g/dL (30-55); Mean Corpuscular Hemoglobin 29.8 pg (27-33); Mean Corpuscular Volume 95.7 fl (85-98); Mean Platelet Volume 12.6 fL (7.4-10.4); Monocytes # 1.2 10^3/uL (0.2-0.9); Neutrophils # 12.52 10^3/uL (1.8-7.7); Neutrophils % 80.7 %; Nucleated Red Blood Cells % 0 %; Platelet Count 200 10^3/cmm (157-399); Red Blood Count 3.22 10^6/uL (3.85-5.65); Red Cell Distribution Width 14.1 % (12.1-15.1); White Blood Count 15.51 10^3/uL (3.29-11.43)
[2024-10-08 06:28] LABS: Blood Urea Nitrogen 18 mg/dL (8-23); Calcium 8.6 mg/dL (8.5-10.5); Carbon Dioxide 21 mmol/L (22-29); Chloride 105 mmol/L (98-107); Creatinine Clr Calc Pharmacy 59.4441; Glucose 129 mg/dL (65-115); Osmolality Calculated 294 mOsm/kg (285-295); Sodium 140 mmol/L (136-145)
[2024-10-08 06:30] LABS: Anion Gap 17.8 (5-19); Potassium 3.8 mmol/L (3.5-5.1)
[2024-10-08] MEDS: fluoxetine 20 mg Capsule PO (09:15)
[2024-10-08] MEDS: metoprolol succinate ER (24 HR) 50 mg Tablet PO (09:15)
[2024-10-08] MEDS: aspirin 81 mg EC Tablet PO (09:15)
[2024-10-08] MEDS: atorvastatin 40 mg Tablet PO (09:15)
--- NOTE | 2024-10-08 10:04 | PC.NURSE ---
Patient frequently attempting to get out of bed, out of the chair, and pulling at lines and monitoring. For patient safety, Dr. Rodriguez contacted and order for 1:1 sitter received.
[2024-10-08] MEDS: oxyCODONE 5 mg IR Tab/Cap PO (10:18)
--- NOTE | 2024-10-08 10:19 | P.PN_ITS ---
Subjective 2 Subjective: Patient has been very anxious and restless. She has been trying to get out of bed, pull on her IV and [place]. She has not been to sleep since she came to the ER the night before. She is somewhat confused. Medications: Reviewed: Yes Vitals/I&O/Wt Last Vital Signs Temp 98 F 10/08/24 05:53 Pulse 75 10/08/24 05:00 Resp 19 H 10/08/24 05:00 BP 144/79 10/08/24 05:00 Pulse Ox 94 10/08/24 02:00 O2 Del Method Room Air 10/08/24 05:53 10/07/24 10/08/24 10/08/24 22:59 06:59 14:59 Intake Total 20 / 520 200 / 200 Balance 20 / 520 200 / 200 Weight last 48 hrs Weight 138 lb Weight 138 lb Weight 136 lb 11.2 oz Weight 160 lb Physical Exam 2 Narrative: General:awake, alert , no acute distress HEENT: Normocephalic, atraumatic, neck is supple Lungs: Clear to auscultation bilaterally, no wheezes or crackles Heart: S1-S2, regular rate and rhythm Abdomen: Soft, nontender, normal bowel sounds Extremities: No pedal edema. Left upper extremity in sling Neurology: No focal motor deficits Data 10/08/24 04:35 10/08/24 04:35 A&P Assessment and plan (1) Age-related cognitive decline: (2) Difficulty in walking: (3) Fracture of humerus: (4) Pubic bone fracture: (5) Leukocytosis: (6) Atrial fibrillation: (7) Hyperlipidemia: Plan 74-year-old female admitted for left humeral fracture, left pubic bone fracture after falling. Continue close ICU monitoring. Orthopedics is consulting and managing fractures. Currently elected for conservative management. Patient has history of atrial fibrillation. Rate is currently well-controlled. Blood pressure is stable. Will continue metoprolol. She is not on chronic anticoagulation. Currently on heparin for VTE prophylaxis. PT/OT evaluation and treat. UA was negative for infection. Patient very restless, confused mildly. She has been pulling at her tubes and lines. Initially tried 0.5 of Ativan to help with the restlessness but was not effective. Discussed with family and elected to do Precedex to see if we could calm the patient down. Precedex was completely ineffective and so we again attempted IV Ativan. If this is ineffective we can consider Zyprexa. Tylenol/ibuprofen for pain management. Concern is that opiate medications may have precipitated this confusion. Will hold these. Code Status: Full IVF: None DVT PPx: heparin. GI PPx: none ABx: None Diet: Regular Discharge plan: Will likely need SNF. Case management consultation. PDMP PDMP Reviewed: Not Reviewed Attestations 2 Medical Necessity Statement*: Patient admitted to inpatient status for evaluation of fractures, discharge planning, orthopedic recomendations, PT/OT. Her care is expected to cross 2 midnights Coding Level of Care Code Acute Code for Chg Fwd Moderate MDM includes number and complexity of problems actively addressed during encounter, amount and/or complexity of data reviewed/ordered and described risk of complication, morbidity or mortality of management as documented Diagnoses Age-related cognitive decline R41.81 Difficulty in walking R26.2 Fracture of humerus S42.309A Encounter type: initial encounter Fracture type: closed Humerus Location: proximal Fracture alignment: displaced Laterality: left Other closed fracture of left pubis, initial encounter S32.592A Encounter type: initial encounter Fracture type: closed Laterality: left Sublocation of pubis: other portion of pubis Leukocytosis D72.823 Leukocytosis type: leukemoid reaction Chronic atrial fibrillation I48.20 Atrial fibrillation type: unspecified chronic Mixed hyperlipidemia E78.2 Hyperlipidemia type: mixed hyperlipidemia
[2024-10-08] MEDS: LORazepam 0.5 mg Tablet PO (11:10)
--- NOTE | 2024-10-08 13:11 | PC.NURSE ---
Patient family present, requesting to speak with Dr. Rodriguez about stopping patients pain medication, expressing belief that pain medication is the source of patients confusion. Family member, Kami asked to sit with patient for patient safety and to help calm the patient. Patient is currently 1:1 with staff.
--- NOTE | 2024-10-08 13:31 | PC.NURSE ---
Radio obtained, patient tuned into her favorite station for relaxation. Kami, patients family at bedside states patient is more oriented now. Patient incorrectly answers orientation questions for this nurse.
[2024-10-08] MEDS: dexmedeTOMIDine 0.9 % NaCL 400 MCG/100 ML PREMIX IV (14:07)
[2024-10-08] MEDS: acetaminophen 325 mg Tablet 650 MG PO (23:17)
[2024-10-09] VITALS (73 sets, daily range): BP systolic 70–184; BP diastolic 35–87; PULSE 56–124; RESP 13–34; TEMP 36.5–37.5; O2SAT 86–100; BMI 21.7
--- NOTE | 2024-10-09 00:27 | PC.NURSE ---
Agitation: patient increasingly agitated, states she wants to go get some cake and ice cream . This nurse attempted to reorient and redirect patient's efforts to climb out of bed.
[2024-10-09] MEDS: dexmedeTOMIDine 0.9 % NaCL 400 MCG/100 ML PREMIX 10.95 MCG IV (01:33)
[2024-10-09] MEDS: heparin 5,000 unit/mL INJ 1 mL 5000 UNIT SUBCUT ×3 (01:33→17:15)
[2024-10-09 05:30] LABS: Basophils # 0.1 10^3/uL (0.0-0.1); Basophils % 0.6 %; Eosinophils # 0.3 10^3/uL (0.0-0.8); Eosinophils % 2.6 %; Hematocrit 26.8 % (36-47); Lymphocytes # 1.9 10^3/uL (0.8-4.8); Lymphocytes % 16.2 %; Mean Corpuscular HGB Conc 31.7 g/dL (30-55); Mean Corpuscular Hemoglobin 29.5 pg (27-33); Mean Corpuscular Volume 93.1 fl (85-98); Mean Platelet Volume 11.9 fL (7.4-10.4); Monocytes # 1.3 10^3/uL (0.2-0.9); Monocytes % 10.8 %; Neutrophils # 8.17 10^3/uL (1.8-7.7); Neutrophils % 69.5 %; Nucleated Red Blood Cells % 0 %; Platelet Count 164 10^3/cmm (157-399); Red Blood Count 2.88 10^6/uL (3.85-5.65); Red Cell Distribution Width 14.1 % (12.1-15.1); White Blood Count 11.77 10^3/uL (3.29-11.43)
[2024-10-09 05:55] LABS: Alanine Aminotransferase 16 U/L (0-33); Alkaline Phosphatase 65 U/L (35-105); Aspartate Amino Transferase 24 U/L (0-32); Blood Urea Nitrogen 17 mg/dL (8-23); Calcium 8.2 mg/dL (8.5-10.5); Carbon Dioxide 22 mmol/L (22-29); Chloride 108 mmol/L (98-107); Creatinine Clr Calc Pharmacy 58.0669; Globulin 2.7 g/dL (1.3-4.6); Glucose 113 mg/dL (65-115); Osmolality Calculated 292 mOsm/kg (285-295); Sodium 140 mmol/L (136-145); Total Bilirubin 0.7 mg/dL (0.15-1.2); Total Protein 5.7 g/dL (6.6-8.7)
[2024-10-09] MEDS: dexmedeTOMIDine 0.9 % NaCL 400 MCG/100 ML PREMIX 12.52 MCG IV (08:11)
[2024-10-09] MEDS: atorvastatin 40 mg Tablet PO (09:03)
[2024-10-09] MEDS: aspirin 81 mg EC Tablet PO (09:03)
[2024-10-09] MEDS: fluoxetine 20 mg Capsule PO (09:03)
[2024-10-09] MEDS: sodium chloride 0.9% 500 ML 999 ML IV (09:30)
--- NOTE | 2024-10-09 09:31 | PC.NURSE ---
Patient's blood pressure went down to 70/40. Precedex was stopped and Dr. Velazquez was called. Dr. Velazquez ordered to give a 500cc saline bolus of NS. Patient's blood pressures have been slowly rising.
[2024-10-09] MEDS: acetaminophen 325 mg Tablet 650 MG PO (11:48)
[2024-10-09] MEDS: ibuprofen 200 mg Tablet 400 MG PO (11:50)
--- NOTE | 2024-10-09 14:20 | P.PN_ITS ---
Subjective 2 Subjective: seen in the ICU, sister at bedside reports patient is now at baseline. Denies any pain Medications: Reviewed: Yes Vitals/I&O/Wt Last Vital Signs Temp 98.6 F 10/10/24 11:17 Pulse 69 10/10/24 11:17 Resp 16 10/10/24 11:17 BP 119/70 10/10/24 11:17 Pulse Ox 92 10/10/24 11:17 O2 Del Method Room Air 10/10/24 11:17 10/09/24 10/10/24 10/10/24 22:59 06:59 14:59 Intake Total 500 / 1071.705 50 / 1121.705 720 / 720 Output Total 700 / 700 1700 / 2400 Balance -200 / 371.705 -1650 / -1278.295 720 / 720 Weight last 48 hrs Weight 74.389 kg Weight 59.165 kg Physical Exam 2 Narrative: General: No acute distress, AO x3 HEENT: PERRLA, pupils bilaterally equal and reactive, pallors not present Chest: Normal vesicular breath sounds, no added sounds, equal good air entry bilaterally CVS: S1-S2 regular, no murmurs, no tachycardia, no gallops, no rubs Abdomen: Soft, nontender, no organomegaly, bowel sounds present Neuro: No focal deficits, no facial deformity, AO x3, power 5/5 in all limbs Urinary Catheter Management: Leavitt: Cath Placed During This Visit: yes, but has since been removed by the nurse Reason for Continuing Indwelling Catheter: Other Urinary Catheter Date of Insertion: 10/08/24 Urinary Catheter Time of Insertion: 15:48 Date Urinary Catheter Removed: 10/10/24 Time Urinary Catheter Discontinued: 10:38 Data 10/10/24 05:32 10/10/24 05:32 A&P Assessment and plan (1) Age-related cognitive decline: (2) Difficulty in walking: (3) Fracture of humerus: (4) Pubic bone fracture: (5) Leukocytosis: (6) Atrial fibrillation: (7) Hyperlipidemia: Plan # Mechanical fall # Fracture of left humerus # Displaced left pubic bone fracture - Patient sustained the above fractures after mechanical fall at home - CT head shows no acute process - Left upper extremity placed in a sling - Orthopedic surgery consulted - Continue analgesia, other supportive care - PT OT evaluation after orthopedic surgery evaluation. # History of atrial fibrillation - Patient is not chronically anticoagulated - Continue metoprolol, aspirin # History of hyperlipidemia - Continue statin # Leukocytosis - Possibly stress reaction, trending down from 10/05 - UA negative for UTI - Continue to monitor 10/09/24: clinically improving, mental status is very close to baseline per fmaily at bedside. [facility] is able to tell me her name, age and fact that she is in the hospital. Remain off opiates and benzodiazepenes. Transfer out of ICU to med/surg. encourage PT/OT assessment PDMP PDMP Reviewed: Not Reviewed Attestations 2 Medical Necessity Statement*: transfer to med/surg, disposition planning Coding Level of Care Code Acute Code for Chg Fwd Diagnoses Age-related cognitive decline R41.81 Difficulty in walking R26.2 Fracture of humerus S42.309A Encounter type: initial encounter Fracture alignment: displaced Fracture type: closed Humerus Location: proximal Laterality: left Other closed fracture of left pubis, initial encounter S32.592A Encounter type: initial encounter Fracture type: closed Laterality: left Sublocation of pubis: other portion of pubis Leukocytosis D72.823 Leukocytosis type: leukemoid reaction Chronic atrial fibrillation I48.20 Atrial fibrillation type: unspecified chronic Mixed hyperlipidemia E78.2 Hyperlipidemia type: mixed hyperlipidemia
--- NOTE | 2024-10-09 14:29 | PC.SOCIAL ---
IMM Update pg 2 of IMM Updated and reviewed w/ patient. Copy provided and copy dated, initialed and placed in chart.
--- NOTE | 2024-10-09 17:27 | PC.NURSE ---
Report was called to [facility] in [facility]. All patient's belongings were transferred with the patient. Patient was stable upon transfer.
[2024-10-09] MEDS: potassium chloride ER 20 mEq Tablet 40 MEQ PO (23:08)
[2024-10-09] MEDS: dilTIAZem 5 mg/mL SDV 5 mL 10 MG IVP (23:11)
[2024-10-09] MEDS: magnesium sulfate premix 2 GM/50 ML PIGGYBACK IV (23:11)
[2024-10-10] MEDS: metoprolol tartrate 1 mg/1 mL SDV 5 mL 10 MG IVP ×2 (01:16→05:21)
[2024-10-10 02:00] VITALS: BP 132/68; PULSE 83; RESP 17; TEMP 36.7; O2SAT 91
[2024-10-10] MEDS: heparin 5,000 unit/mL INJ 1 mL 5000 UNIT SUBCUT ×3 (02:01→18:29)
[2024-10-10] MEDS: metoprolol succinate ER (24 HR) 50 mg Tablet PO (05:21)
[2024-10-10 05:49] LABS: Basophils # 0.1 10^3/uL (0.0-0.1); Basophils % 0.5 %; Eosinophils # 0.2 10^3/uL (0.0-0.8); Eosinophils % 1.7 %; Hematocrit 30.2 % (36-47); Lymphocytes # 1.7 10^3/uL (0.8-4.8); Lymphocytes % 11.6 %; Mean Corpuscular HGB Conc 32.1 g/dL (30-55); Mean Corpuscular Hemoglobin 29.6 pg (27-33); Mean Corpuscular Volume 92.1 fl (85-98); Mean Platelet Volume 11.1 fL (7.4-10.4); Monocytes # 1.3 10^3/uL (0.2-0.9); Monocytes % 9.2 %; Neutrophils # 10.86 10^3/uL (1.8-7.7); Neutrophils % 76.4 %; Nucleated Red Blood Cells % 0 %; Platelet Count 258 10^3/cmm (157-399); Red Blood Count 3.28 10^6/uL (3.85-5.65); White Blood Count 14.21 10^3/uL (3.29-11.43)
[2024-10-10 06:07] LABS: Alanine Aminotransferase 25 U/L (0-33); Albumin Level 3.2 g/dL (3.5-5.2); Alkaline Phosphatase 51 U/L (35-105); Anion Gap 15.6 (5-19); Aspartate Amino Transferase 29 U/L (0-32); Blood Urea Nitrogen 13 mg/dL (8-23); Calcium 8.4 mg/dL (8.5-10.5); Carbon Dioxide 23 mmol/L (22-29); Chloride 107 mmol/L (98-107); Creatinine Clr Calc Pharmacy 64.1777; Globulin 3.1 g/dL (1.3-4.6); Glucose 127 mg/dL (65-115); Magnesium 2.5 mg/dL (1.7-2.3); Osmolality Calculated 294 mOsm/kg (285-295); Potassium 4.6 mmol/L (3.5-5.1); Sodium 141 mmol/L (136-145); Total Bilirubin 0.6 mg/dL (0.15-1.2); Total Protein 6.3 g/dL (6.6-8.7)
--- NOTE | 2024-10-10 06:43 | PC.NURSE ---
Approx 2300 pt tele showed afib with RVR, Dr. Ty notified oreder for Cardizem, potassium, and magnesium received and administered, pt remained in afib but pulse in 80's until approx 0100 and pulse tachy and afib reaching 150's, Dr. Ty notified and order for metoprolol IV 10 mg received and administered. continue to remain in afib and pulse lower, approx 0520 heart rate increased and Dr. Ty notified again and order received to give another 10 mg of metoprolol and go ahead and dive 0900 metoprolol ER. PT currently converted to sinus rhythm
[2024-10-10 07:07] VITALS: BP 144/70; PULSE 71; RESP 16; TEMP 36.8; O2SAT 91
--- NOTE | 2024-10-10 07:50 | XRR_ITS ---
PROCEDURE INFORMATION: Exam: XR Chest Exam date and time: 10/10/2024 8:27 AM Age: 74 years old Clinical indication: Cough and shortness of breath; Additional info: Assess for pneumonia/infiltrates TECHNIQUE: Imaging protocol: Radiologic exam of the chest. Views: 1 view. COMPARISON: CR (CHEST, ) 10/05/2024 6:29 PM FINDINGS: Lungs: The lungs appear hyperinflated with COPD changes. No acute infiltrates identified. Pleural spaces: Unremarkable. No pleural effusion. No pneumothorax. Heart/Mediastinum: Unremarkable. No cardiomegaly. Bones/joints: Grossly stable left humeral head/neck fracture. XR/XR chest 1V portable [id number] IMPRESSION: COPD, otherwise clear chest.
--- NOTE | 2024-10-10 07:51 | USCV_ITS ---
Mayela Martino Age: 74 Gender: F : 1950 Exam Date: 10/10/2024 13:41 Ordering Phys: Soraya Velazquez MD Technologist: TOM Exam Location: [facility] [place] Indication: New a-fib BP: 144 / 70 HR: 70 Rhythm: Sinus Technical Quality: Adequate MEASUREMENTS (Male / Female) Normal Values 2D ECHO LV Diastolic Diameter PLAX 5.0 cm 4.2 - 5.9 / 3.9 - 5.3 cm IVS Diastolic Thickness 0.9 cm 0.6 - 1.0 / 0.6 - 0.9 cm IVS Systolic Thickness 1.7 cm LVPW Diastolic Thickness 1.2 cm 0.6 - 1.0 / 0.6 - 0.9 cm LVPW Systolic Thickness 1.4 cm LVOT Diameter 1.9 cm LV Ejection Fraction 2D Teich 55.8 % LV Ejection Fraction MOD 4C 55.3 % LV Ejection Fraction MOD 2C 53.3 % LV Ejection Fraction 2C AL 53.5 % LA Diameter 3.2 cm RA Systolic Volume 4C AL 26.8 ml RA Systolic Volume 4C MOD 24.9 ml LA Sys Volume AL 43.5 cm cubed LA Sys Volume Index AL 23.3 cm cubed/m squared Aorta at Sinotubular Diameter 2.4 cm M-MODE LA Ao Ratio MM 1.6 AV Cusp Separation MM 1.9 cm DOPPLER AV Peak Velocity 176.0 cm/s LVOT Peak Velocity 70.0 cm/s AV Area Cont Eq vti 1.3 cm squared AV Area Cont Eq pk 1.2 cm squared MV Peak Velocity 89.0 cm/s MV Area PHT 3.5 cm squared Mitral E to A Ratio 1.1 TR Peak Velocity 243.0 cm/s TR Peak Gradient 23.6 mmHg TV Peak E Velocity 89.0 cm/s PV Peak Velocity 122.0 cm/s FINDINGS Left Ventricle Normal left ventricular size and systolic function, EF 55%.mild left ventricular hypertrophy. No regional wall motion abnormalities. Grade I/IV diastolic dysfunction (abnormal relaxation filling pattern), normal to mildly elevated filling pressures. Right Ventricle The right ventricle is normal in size and function. Right Atrium The right atrium is normal in size. Left Atrium The left atrium is normal in size. Mitral Valve Trace mitral valve regurgitation. Aortic Valve Thickened aortic valve. Tricuspid Valve Trace tricuspid valve regurgitation. Pulmonic Valve Trace to mild to mild pulmonary valve regurgitation. Pericardium Normal pericardium without effusion. Aorta Normal ascending aorta dimension. IVC Inferior vena cava not visualized. CONCLUSIONS Normal left ventricular size and systolic function, EF 55%.mild left ventricular hypertrophy. No regional wall motion abnormalities. Grade I/IV diastolic dysfunction (abnormal relaxation filling pattern), normal to mildly elevated filling pressures. Trace mitral valve regurgitation. Thickened aortic valve. Trace tricuspid valve regurgitation. Estimated pulmonary artery peak systolic pressure 27 mmHg. There is no pericardial effusion. Trace to mild to mild pulmonary valve regurgitation. Technically somewhat difficult study Compared to the study from 11/11/2016, there may not be a significant change Dr Evelyne Howard MD FACC (Electronically Signed) Final Date: 10 October 2024 18:29 S
[2024-10-10] MEDS: fluoxetine 20 mg Capsule PO (08:20)
[2024-10-10] MEDS: aspirin 81 mg EC Tablet PO (08:20)
[2024-10-10] MEDS: pantoprazole DR 40 mg Tablet PO (08:20)
[2024-10-10] MEDS: atorvastatin 40 mg Tablet PO (08:20)
--- NOTE | 2024-10-10 10:26 | PC.NURSE ---
Called Dr. Avilez for orders to take out the aaron catheter. Dr. Avilez gave orders to remove aaron. Also asked if someone could come speak to family. Dr. Avilez said they were all in surgery so would be a while.
[2024-10-10 11:17] VITALS: BP 119/70; PULSE 69; RESP 16; TEMP 37; O2SAT 92
[2024-10-10] MEDS: ibuprofen 200 mg Tablet 400 MG PO ×2 (14:11→21:29)
--- NOTE | 2024-10-10 14:12 | P.PN_ITS ---
Subjective 2 Subjective: overnight patient had episode of A fib with RVR, she received multiple pushes of iv metorpolol and iv cardizem which resulted in conversion to sinus rhythm Medications: Reviewed: Yes Vitals/I&O/Wt Last Vital Signs Temp 98.6 F 10/10/24 11:17 Pulse 69 10/10/24 11:17 Resp 16 10/10/24 11:17 BP 119/70 10/10/24 11:17 Pulse Ox 92 10/10/24 11:17 O2 Del Method Room Air 10/10/24 11:17 10/09/24 10/10/24 10/10/24 22:59 06:59 14:59 Intake Total 500 / 1071.705 50 / 1121.705 720 / 720 Output Total 700 / 700 1700 / 2400 Balance -200 / 371.705 -1650 / -1278.295 720 / 720 Weight last 48 hrs Weight 74.389 kg Weight 59.165 kg Physical Exam 2 Narrative: General: No acute distress, AO x3 HEENT: PERRLA, pupils bilaterally equal and reactive, pallors not present Chest: Normal vesicular breath sounds, no added sounds, equal good air entry bilaterally CVS: S1-S2 regular, no murmurs, no tachycardia, no gallops, no rubs Abdomen: Soft, nontender, no organomegaly, bowel sounds present Neuro: No focal deficits, no facial deformity, AO x3, power 5/5 in all limbs Urinary Catheter Management: Aaron: Cath Placed During This Visit: yes, but has since been removed by the nurse Reason for Continuing Indwelling Catheter: Other Urinary Catheter Date of Insertion: 10/08/24 Urinary Catheter Time of Insertion: 15:48 Date Urinary Catheter Removed: 10/10/24 Time Urinary Catheter Discontinued: 10:38 Data 10/10/24 05:32 10/10/24 05:32 A&P Assessment and plan (1) Age-related cognitive decline: (2) Difficulty in walking: (3) Fracture of humerus: (4) Pubic bone fracture: (5) Leukocytosis: (6) Atrial fibrillation: (7) Hyperlipidemia: Plan # Mechanical fall # Fracture of left humerus # Displaced left pubic bone fracture - Patient sustained the above fractures after mechanical fall at home - CT head shows no acute process - Left upper extremity placed in a sling - Orthopedic surgery consulted - Continue analgesia, other supportive care - PT OT evaluation after orthopedic surgery evaluation. # History of atrial fibrillation - Patient is not chronically anticoagulated - Continue metoprolol, aspirin # History of hyperlipidemia - Continue statin # Leukocytosis - Possibly stress reaction, trending down from 10/05 - UA negative for UTI - Continue to monitor 10/10/24: patient had episode of A fib with RVR last night with improvement after being given pushes of IV cardizem and metoprolol. RINKU reports she has a piror h/o A fib with episodes of RVR that have appeared to resolve soentaneously. Her metoprolol was increased to 50mg daily and she had not episodes in a while. She is not on any a/c, presumably per history related to low [id number] score. Currently this score is esrimated at 2. Not an ideal time to consider anticoagulation due to extensive bruising related to arm and pelvic fractures. Leukocytosis at 14K however no localzing sign of infection. Check CXR. Remove aaron catheter PDMP PDMP Reviewed: Not Reviewed Attestations 2 Medical Necessity Statement*: a fib overnight, awaiting level 2 auth for SNF Coding Level of Care Code Acute Code for Chg Fwd Diagnoses Age-related cognitive decline R41.81 Difficulty in walking R26.2 Fracture of humerus S42.309A Encounter type: initial encounter Fracture alignment: displaced Fracture type: closed Humerus Location: proximal Laterality: left Other closed fracture of left pubis, initial encounter S32.592A Encounter type: initial encounter Fracture type: closed Laterality: left Sublocation of pubis: other portion of pubis Leukocytosis D72.823 Leukocytosis type: leukemoid reaction Chronic atrial fibrillation I48.20 Atrial fibrillation type: unspecified chronic Mixed hyperlipidemia E78.2 Hyperlipidemia type: mixed hyperlipidemia
[2024-10-10] MEDS: acetaminophen 325 mg Tablet 650 MG PO ×2 (14:13→21:29)
[2024-10-10 15:18] VITALS: BP 100/61; PULSE 71; RESP 16; TEMP 36.8; O2SAT 92
--- NOTE | 2024-10-10 18:00 | P.PN_ITS ---
Subjective 2 Subjective: Patient has been in the hospital for pain control. Also changes in mentation. She has also had some cardiac issues primarily A-fib yesterday. Medications: Reviewed: Yes Vitals/I&O/Wt Last Vital Signs Temp 97.8 F 10/11/24 04:00 Pulse 80 10/11/24 04:00 Resp 17 10/11/24 04:00 BP 170/67 10/11/24 04:00 Pulse Ox 95 10/11/24 04:00 O2 Del Method Room Air 10/11/24 04:00 10/10/24 10/11/24 10/11/24 22:59 06:59 14:59 Intake Total 240 / 960 Balance 240 / 960 Weight last 48 hrs Weight 149 lb Weight 164 lb Physical Exam 2 Narrative: Patient seen she sitting up and having dinner. She is leaning on her left elbow i.e. fractured humerus side. I have discussed with her the need to allow this arm to dangle and not put pressure on there. She does not seem to understand and discusses topics that are not in the conversation at this time Urinary Catheter Management: Leavitt: Cath Placed During This Visit: yes, but has since been removed by the nurse Reason for Continuing Indwelling Catheter: Other Urinary Catheter Date of Insertion: 10/08/24 Urinary Catheter Time of Insertion: 15:48 Date Urinary Catheter Removed: 10/10/24 Time Urinary Catheter Discontinued: 10:38 Data 10/11/24 05:13 10/11/24 05:13 A&P Assessment and plan (1) Pubic bone fracture: Patient has superior ramus fracture of the left hemipelvis. Patient indicating no pain no problems (2) Fracture of humerus: Patient with proximal left humerus fracture patient has no complaints of pain. Patient leaning on his elbow at this time. Plan Plan at this time is conservative measures. Strongly encouraged patient to allow her left arm to dangle and not to put any pressure on it. I have tried to discuss with her that this may help bring the fracture fragments back into alignment. Continue on with nonweightbearing on the left side of her hemipelvis for total 2 weeks and then may start gradual weightbearing. Presently at this time no surgical intervention is indicated for the left proximal humerus due to the fact I do not believe the patient could follow postoperative instructions and protect this area after fixation has been done. Therefore, conservative measures are the primary course of action here. PDMP PDMP Reviewed: Not Reviewed Attestations 2 Medical Necessity Statement*: Patient in need of pain control, continued therapies, observation and redirection for her activities. Coding Level of Care Code 08190 Diagnoses Other closed fracture of left pubis, initial encounter S32.592A Encounter type: initial encounter Fracture type: closed Laterality: left Sublocation of pubis: other portion of pubis Fracture of humerus S42.309A Encounter type: initial encounter Fracture alignment: displaced Fracture type: closed Humerus Location: proximal Laterality: left
[2024-10-10 20:00] VITALS: BP 152/73; PULSE 79; RESP 18; TEMP 36.5; O2SAT 95
[2024-10-11] VITALS (7 sets, daily range): BP systolic 107–174; BP diastolic 62–83; PULSE 68–81; RESP 16–18; TEMP 36.3–37.3; O2SAT 91–95
[2024-10-11] MEDS: haloperidol inj 5 mg/mL INJ 1 mL 1 MG IM (02:43)
[2024-10-11] MEDS: heparin 5,000 unit/mL INJ 1 mL 5000 UNIT SUBCUT ×3 (02:44→18:37)
[2024-10-11 05:37] LABS: Basophils # 0.1 10^3/uL (0.0-0.1); Basophils % 0.5 %; Eosinophils # 0.2 10^3/uL (0.0-0.8); Hematocrit 29.5 % (36-47); Lymphocytes # 1.8 10^3/uL (0.8-4.8); Lymphocytes % 10.5 %; Mean Corpuscular HGB Conc 32.5 g/dL (30-55); Mean Corpuscular Hemoglobin 30.7 pg (27-33); Mean Corpuscular Volume 94.2 fl (85-98); Mean Platelet Volume 11.1 fL (7.4-10.4); Monocytes # 1.6 10^3/uL (0.2-0.9); Monocytes % 9.6 %; Neutrophils % 77.6 %; Nucleated Red Blood Cells % 0 %; Platelet Count 255 10^3/cmm (157-399); Red Blood Count 3.13 10^6/uL (3.85-5.65); Red Cell Distribution Width 14.1 % (12.1-15.1); White Blood Count 17.03 10^3/uL (3.29-11.43)
[2024-10-11 06:01] LABS: Alanine Aminotransferase 33 U/L (0-33); Albumin Level 3.2 g/dL (3.5-5.2); Alkaline Phosphatase 63 U/L (35-105); Anion Gap 15.3 (5-19); Aspartate Amino Transferase 42 U/L (0-32); Blood Urea Nitrogen 16 mg/dL (8-23); Calcium 8.5 mg/dL (8.5-10.5); Carbon Dioxide 20 mmol/L (22-29); Chloride 105 mmol/L (98-107); Creatinine Clr Calc Pharmacy 61.4466; Globulin 2.9 g/dL (1.3-4.6); Glucose 135 mg/dL (65-115); Osmolality Calculated 285 mOsm/kg (285-295); Potassium 4.3 mmol/L (3.5-5.1); Sodium 136 mmol/L (136-145); Total Bilirubin 0.7 mg/dL (0.15-1.2); Total Protein 6.1 g/dL (6.6-8.7)
[2024-10-11] MEDS: atorvastatin 40 mg Tablet PO (09:28)
[2024-10-11] MEDS: metoprolol succinate ER (24 HR) 50 mg Tablet PO (09:29)
[2024-10-11] MEDS: aspirin 81 mg EC Tablet PO (09:29)
[2024-10-11] MEDS: fluoxetine 20 mg Capsule PO (09:29)
[2024-10-11] MEDS: pantoprazole DR 40 mg Tablet PO (09:29)
[2024-10-11] MEDS: lanolin oint 7 gm 1 APPLIC TOPICAL (09:40)
--- NOTE | 2024-10-11 09:43 | P.PN_ITS ---
Subjective 2 Subjective: patient was agitated last night, took off her arm sling and threw it away. Did not receiave any opiates or ativan . Haldol did not appear to help with agitation. This mornign she is more calm but lethargic compared to yesterday exam. She prefers to lay in bed, sleeping, wakes up to answer questions but less alert today Medications: Reviewed: Yes Vitals/I&O/Wt Last Vital Signs Temp 99.2 F 10/11/24 15:57 Pulse 78 10/11/24 15:57 Resp 16 10/11/24 15:57 BP 119/66 10/11/24 15:57 Pulse Ox 91 10/11/24 15:57 O2 Del Method Room Air 10/11/24 15:57 10/11/24 10/11/24 10/11/24 06:59 14:59 22:59 Intake Total 960 / 960 Output Total 525 / 525 Balance 435 / 435 Weight last 48 hrs Weight 67.585 kg Weight 74.389 kg Physical Exam 2 Narrative: General: more somnolent today, AO x3 HEENT: PERRLA, pupils bilaterally equal and reactive, pallors not present Chest: Normal vesicular breath sounds, no added sounds, equal good air entry bilaterally CVS: S1-S2 regular, no murmurs, no tachycardia, no gallops, no rubs Abdomen: Soft, nontender, no organomegaly, bowel sounds present Urinary Catheter Management: Hartman: Cath Placed During This Visit: yes, but has since been removed by the nurse Reason for Continuing Indwelling Catheter: Other Urinary Catheter Date of Insertion: 10/08/24 Urinary Catheter Time of Insertion: 15:48 Date Urinary Catheter Removed: 10/10/24 Time Urinary Catheter Discontinued: 10:38 Data 10/11/24 05:13 10/11/24 05:13 Micro: Microbiology 10/11/24 10:55 Blood Culture - Preliminary Blood SPECIMEN COLLECTED 10/11/24 10:55 Blood Culture - Preliminary Blood SPECIMEN COLLECTED A&P Assessment and plan (1) Age-related cognitive decline: (2) Difficulty in walking: (3) Fracture of humerus: (4) Pubic bone fracture: (5) Leukocytosis: (6) Atrial fibrillation: (7) Hyperlipidemia: Plan # Mechanical fall # Fracture of left humerus # Displaced left pubic bone fracture - Patient sustained the above fractures after mechanical fall at home - CT head shows no acute process - Left upper extremity placed in a sling - Orthopedic surgery consulted - Continue analgesia, other supportive care - PT OT evaluation after orthopedic surgery evaluation. # History of atrial fibrillation - Patient is not chronically anticoagulated - Continue metoprolol, aspirin # History of hyperlipidemia - Continue statin # Leukocytosis - Possibly stress reaction, trending down from 10/05 - UA negative for UTI - Continue to monitor 10/09/24: clinically improving, mental status is very close to baseline per fmaily at bedside. [facility] is able to tell me her name, age and fact that she is in the hospital. Remain off opiates and benzodiazepenes. Transfer out of ICU to med/surg. encourage PT/OT assessment 10/11/24: More somnolent today, agitated overnight. Add Zyprexa 5mg at night time. Previously agitation was thought to be related to opiates however she has not received any opiates in over 48 hrs at this point in time. May be related to hospital delirium however with increasing leukocytsis, potentially may have underlying infection. Will evaluate this further by obtaining blood cx, UA and urine cx, recently had telma Hartman need to exclude UTI. CXR without any infiltrates. Denies any abdominal pain or nausea. No diarrhea. Add toradol for pain management. Start ceftriaxone 1 g iv every 24 hrs while undergoing infectious evaluation. PDMP PDMP Reviewed: Not Reviewed Attestations 2 Medical Necessity Statement*: lethargic today, confused overnight, leukocytosis evaluation Coding Level of Care Code Acute Code for Chg Fwd High MDM includes number and complexity of problems actively addressed during encounter, amount and/or complexity of data reviewed/ordered and described risk of complication, morbidity or mortality of management as documented Diagnoses Age-related cognitive decline R41.81 Difficulty in walking R26.2 Fracture of humerus S42.309A Encounter type: initial encounter Fracture alignment: displaced Fracture type: closed Humerus Location: proximal Laterality: left Other closed fracture of left pubis, initial encounter S32.592A Encounter type: initial encounter Fracture type: closed Laterality: left Sublocation of pubis: other portion of pubis Leukocytosis D72.823 Leukocytosis type: leukemoid reaction Chronic atrial fibrillation I48.20 Atrial fibrillation type: unspecified chronic Mixed hyperlipidemia E78.2 Hyperlipidemia type: mixed hyperlipidemia
[2024-10-11] MEDS: cefTRIAXone 1,000 mg SDV 1000 MG IVP (09:47)
[2024-10-11] MEDS: ketorolac 30 mg/mL INJ 15 MG IVP ×2 (11:09→18:37)
[2024-10-11 11:21] LABS: Bilirubin Urine Negative (Negative); Blood Urine Non-haemolysed trace (Negative); Glucose Urine UA 1+ (Normal); Ketones Urine Negative (Negative); Leukocyte Esterase Urine 2+ (Negative); Nitrate Urine Positive (Negative); Protein Urine Trace (Negative); Specific Gravity, Urine 1.022 (1.005-1.030); Urine Appearance Clear (CLEAR); Urine Color Yellow (Yellow); pH Urine 6.5 (5-7)
[2024-10-11 11:23] LABS: Add Urine Microscopic? YES; Bacteria Urine 4+ /hpf; Squamous Epithelial Cell Urine 0-5 /hpf (0-5); WBC Urine >100 /hpf (0-5)
[2024-10-11 11:28] LABS: Add Urine Culture? No
[2024-10-11] MEDS: OLANZapine 5 mg TABLET PO (20:07)
[2024-10-12] VITALS: BP 147/73; PULSE 81; RESP 20; TEMP 36.6; O2SAT 92
[2024-10-12] MEDS: ketorolac 30 mg/mL INJ 15 MG IVP ×3 (01:41→17:26)
[2024-10-12] MEDS: heparin 5,000 unit/mL INJ 1 mL 5000 UNIT SUBCUT ×3 (01:42→17:26)
[2024-10-12 04:00] VITALS: BP 103/67; PULSE 79; RESP 18; TEMP 36.3; O2SAT 94
[2024-10-12 05:12] LABS: Basophils # 0.1 10^3/uL (0.0-0.1); Basophils % 0.6 %; Eosinophils # 0.4 10^3/uL (0.0-0.8); Eosinophils % 2.4 %; Lymphocytes % 12.7 %; Mean Corpuscular HGB Conc 32.1 g/dL (30-55); Mean Corpuscular Hemoglobin 30.7 pg (27-33); Mean Corpuscular Volume 95.7 fl (85-98); Mean Platelet Volume 12.1 fL (7.4-10.4); Monocytes # 1.7 10^3/uL (0.2-0.9); Monocytes % 10.9 %; Neutrophils % 72.5 %; Nucleated Red Blood Cells % 0.1 %; Platelet Count 259 10^3/cmm (157-399); Red Blood Count 3.03 10^6/uL (3.85-5.65); Red Cell Distribution Width 14.6 % (12.1-15.1); White Blood Count 15.84 10^3/uL (3.29-11.43)
[2024-10-12 05:47] LABS: Alanine Aminotransferase 34 U/L (0-33); Albumin Level 2.9 g/dL (3.5-5.2); Alkaline Phosphatase 63 U/L (35-105); Blood Urea Nitrogen 24 mg/dL (8-23); Calcium 8.8 mg/dL (8.5-10.5); Carbon Dioxide 20 mmol/L (22-29); Chloride 102 mmol/L (98-107); Creatinine Clr Calc Pharmacy 61.4466; Globulin 3.4 g/dL (1.3-4.6); Glucose 128 mg/dL (65-115); Osmolality Calculated 286 mOsm/kg (285-295); Sodium 135 mmol/L (136-145); Total Bilirubin 0.6 mg/dL (0.15-1.2); Total Protein 6.3 g/dL (6.6-8.7)
[2024-10-12 05:48] LABS: Anion Gap 17.6 (5-19); Aspartate Amino Transferase 38 U/L (0-32); Potassium 4.6 mmol/L (3.5-5.1)
[2024-10-12 07:37] VITALS: BP 138/78; PULSE 78; RESP 16; TEMP 36.8; O2SAT 93
[2024-10-12] MEDS: metoprolol succinate ER (24 HR) 50 mg Tablet PO (09:21)
[2024-10-12] MEDS: aspirin 81 mg EC Tablet PO (09:21)
[2024-10-12] MEDS: atorvastatin 40 mg Tablet PO (09:21)
[2024-10-12] MEDS: fluoxetine 20 mg Capsule PO (09:21)
[2024-10-12] MEDS: cefTRIAXone 1,000 mg SDV 1000 MG IVP (09:21)
[2024-10-12] MEDS: pantoprazole DR 40 mg Tablet PO (09:21)
[2024-10-12 11:55] VITALS: BP 99/60; PULSE 71; RESP 17; TEMP 36.9; O2SAT 94
[2024-10-12 15:38] VITALS: BP 117/69; PULSE 70; RESP 18; TEMP 36.6; O2SAT 92
--- NOTE | 2024-10-12 16:35 | P.PN_ITS ---
Subjective 2 Subjective: Much more alert and awake today. Tmax 99 Fahrenheit. WBC at 15,000. No new complaints. Medications: Reviewed: Yes Vitals/I&O/Wt Last Vital Signs Temp 98 F 10/12/24 15:38 Pulse 70 10/12/24 15:38 Resp 18 10/12/24 15:38 BP 117/69 10/12/24 15:38 Pulse Ox 92 10/12/24 15:38 O2 Del Method Room Air 10/12/24 15:38 10/12/24 10/12/24 10/12/24 06:59 14:59 22:59 Intake Total 960 / 960 Balance 960 / 960 Weight last 48 hrs Weight 66.224 kg Weight 67.585 kg Physical Exam 2 Narrative: General: more somnolent today, AO x3 HEENT: PERRLA, pupils bilaterally equal and reactive, pallors not present Chest: Normal vesicular breath sounds, no added sounds, equal good air entry bilaterally CVS: S1-S2 regular, no murmurs, no tachycardia, no gallops, no rubs Abdomen: Soft, nontender, no organomegaly, bowel sounds present Urinary Catheter Management: Hartman: Cath Placed During This Visit: yes, but has since been removed by the nurse Reason for Continuing Indwelling Catheter: Other Urinary Catheter Date of Insertion: 10/08/24 Urinary Catheter Time of Insertion: 15:48 Date Urinary Catheter Removed: 10/10/24 Time Urinary Catheter Discontinued: 10:38 Data 10/12/24 04:22 10/12/24 04:22 Micro: Microbiology 10/11/24 10:55 Blood Culture - Preliminary Blood NEGATIVE TO DATE 10/11/24 10:55 Blood Culture - Preliminary Blood NEGATIVE TO DATE 10/11/24 10:40 Urine Culture - Preliminary Urine,Clean Catch Gram Negative Rods A&P Assessment and plan (1) Age-related cognitive decline: (2) Difficulty in walking: (3) Fracture of humerus: (4) Pubic bone fracture: (5) Leukocytosis: (6) Atrial fibrillation: (7) Hyperlipidemia: Plan # Mechanical fall # Fracture of left humerus # Displaced left pubic bone fracture - Patient sustained the above fractures after mechanical fall at home - CT head shows no acute process - Left upper extremity placed in a sling - Orthopedic surgery consulted - Continue analgesia, other supportive care - PT OT evaluation after orthopedic surgery evaluation. # History of atrial fibrillation - Patient is not chronically anticoagulated - Continue metoprolol, aspirin # History of hyperlipidemia - Continue statin # Leukocytosis - Possibly stress reaction, trending down from 10/05 - UA negative for UTI - Continue to monitor 10/09/24: clinically improving, mental status is very close to baseline per fmaily at bedside. [facility] is able to tell me her name, age and fact that she is in the hospital. Remain off opiates and benzodiazepenes. Transfer out of ICU to med/surg. encourage PT/OT assessment 10/11/24: More somnolent today, agitated overnight. Add Zyprexa 5mg at night time. Previously agitation was thought to be related to opiates however she has not received any opiates in over 48 hrs at this point in time. May be related to hospital delirium however with increasing leukocytsis, potentially may have underlying infection. Will evaluate this further by obtaining blood cx, UA and urine cx, recently had Hartman, telma need to exclude UTI. CXR without any infiltrates. Denies any abdominal pain or nausea. No diarrhea. Add toradol for pain management. Start ceftriaxone 1 g iv every 24 hrs while undergoing infectious evaluation. October 12, 2024 Patient is back at baseline today. Alert awake oriented, in good spirits. Received Zyprexa 5 mg at nighttime. UA positive for UTI with greater than 100 WBCs, positive nitrate, positive leukocyte Estrace. This was not present on admission. Hartman was removed yesterday on 10/11/2024. Started on ceftriaxone 1 g IV every 24 hours yesterday which we will continue. Awaiting urine cultures. PDMP PDMP Reviewed: Not Reviewed Attestations 2 Medical Necessity Statement*: Urine culture pending, awaiting appropriate disposition planning, level 2 auth Coding Level of Care Code Acute Code for Chg Fwd Diagnoses Age-related cognitive decline R41.81 Difficulty in walking R26.2 Fracture of humerus S42.309A Encounter type: initial encounter Fracture alignment: displaced Fracture type: closed Humerus Location: proximal Laterality: left Other closed fracture of left pubis, initial encounter S32.592A Encounter type: initial encounter Fracture type: closed Laterality: left Sublocation of pubis: other portion of pubis Leukocytosis D72.823 Leukocytosis type: leukemoid reaction Chronic atrial fibrillation I48.20 Atrial fibrillation type: unspecified chronic Mixed hyperlipidemia E78.2 Hyperlipidemia type: mixed hyperlipidemia
[2024-10-12 20:23] VITALS: BP 109/63; PULSE 85; RESP 16; TEMP 36.9; O2SAT 92
[2024-10-12] MEDS: OLANZapine 5 mg TABLET PO (21:13)
[2024-10-13 00:22] VITALS: BP 115/65; PULSE 79; RESP 16; TEMP 36.6; O2SAT 94
[2024-10-13] MEDS: ketorolac 30 mg/mL INJ 15 MG IVP ×2 (02:26→11:00)
[2024-10-13] MEDS: heparin 5,000 unit/mL INJ 1 mL 5000 UNIT SUBCUT ×2 (02:26→11:00)
[2024-10-13 04:00] VITALS: BP 131/67; PULSE 69; RESP 17; TEMP 37.1; O2SAT 92
[2024-10-13 07:32] VITALS: BP 138/73; PULSE 78; RESP 18; TEMP 37.1; O2SAT 92
[2024-10-13] MEDS: aspirin 81 mg EC Tablet PO (08:43)
[2024-10-13] MEDS: atorvastatin 40 mg Tablet PO (08:43)
[2024-10-13] MEDS: cefTRIAXone 1,000 mg SDV 1000 MG IVP (08:43)
[2024-10-13] MEDS: pantoprazole DR 40 mg Tablet PO (08:43)
[2024-10-13] MEDS: fluoxetine 20 mg Capsule PO (08:43)
[2024-10-13] MEDS: metoprolol succinate ER (24 HR) 50 mg Tablet PO (08:43)
[2024-10-13 11:16] VITALS: BP 114/67; PULSE 67; RESP 18; TEMP 37.1; O2SAT 93
--- NOTE | 2024-10-13 11:53 | PC.NURSE ---
Attempted to call report to [facility] three times and no answer.
[2024-10-13] MEDS: acetaminophen 325 mg Tablet 650 MG PO (11:56)
--- NOTE | 2024-10-13 12:21 | PC.NURSE ---
Attempted to call report again to [facility] with no answer.
--- NOTE | 2024-10-13 12:55 | PM.DCS ---
Discharge Providers Date of Admission: 10/07/24 14:08 Date of Discharge: October 13, 2024 Attending Provider at Admission: Abhilash Summers MD Attending Provider at Discharge: Soraya Velazquez MD Primary Care Provider: Keny Jimenez MD Diagnoses at Discharge Discharge Diagnosis (1) Age-related cognitive decline: Status: Acute (2) Difficulty in walking: Status: Acute (3) Fracture of humerus: Status: Acute Qualifiers: Encounter type: initial encounter Fracture alignment: displaced Fracture type: closed Humerus Location: proximal Laterality: left (4) Pubic bone fracture: Status: Acute Qualifiers: Encounter type: initial encounter Fracture type: closed Laterality: left Sublocation of pubis: other portion of pubis Qualified Code(s): S32.592A - Other specified fracture of left pubis, initial encounter for closed fracture (5) Leukocytosis: Status: Inactive Qualifiers: Leukocytosis type: leukemoid reaction Qualified Code(s): D72.823 - Leukemoid reaction (6) Atrial fibrillation: Status: Acute Qualifiers: Atrial fibrillation type: unspecified chronic Qualified Code(s): I48.20 - Chronic atrial fibrillation, unspecified (7) Hyperlipidemia: Status: Acute Qualifiers: Hyperlipidemia type: mixed hyperlipidemia Qualified Code(s): E78.2 - Mixed hyperlipidemia Reason for Visit Reason for Visit: left arm pain s/p fall Hospital Course Hospital Course 74-year-old lady with a past medical history of autism and mild developmental delay who presented to the hospital on October 07, 2024 with c/o mechanical fall at home which resulted in a displaced left pubic bone fracture and a left humerus fracture. She was evaluated by orthopedics and recommended conservative management. She participated with PT with restrictions as provided by ortho service. Her left arm is in a sling. Hospital course was complicated encephalopathy, likely related to opiate use therefore these have been avoided during hospital stay. Her pain remained controlled with NSAids. She also developed a UTI. Urine cx showed E. coli for which she received ceftriaxone in the hospital and is being discharged on Cefuroxime 500mg BID for 5 days at discharge. She is currently back to baseline mentation, being discharged to SNF for continued rehab in improved condition. Physical Exam Narrative: General: No acute distress, AO x3 HEENT: PERRLA, pupils bilaterally equal and reactive, pallors not present Chest: Normal vesicular breath sounds, no added sounds, equal good air entry bilaterally CVS: S1-S2 regular, no murmurs, no tachycardia, no gallops, no rubs Abdomen: Soft, nontender, no organomegaly, bowel sounds present Neuro: No focal deficits, no facial deformity, AO x3, power 5/5 in all limbs Urinary Catheter Management: [place]: Cath Placed During This Visit: yes, but has since been removed by the nurse Reason for Continuing Indwelling Catheter: Other Urinary Catheter Date of Insertion: 10/08/24 Urinary Catheter Time of Insertion: 15:48 Date Urinary Catheter Removed: 10/10/24 Time Urinary Catheter Discontinued: 10:38 Discharge Data Studies Completed and Pending Completed Studies During Hospitalization Category Date Time Status CT head wo con* [id number] Stat Cat Scan 10/07/24 14:[address] pelvis wo bone [CT bony pelvis [id number]] Stat Cat Scan 10/07/24 12:43 Completed CXRP [XR chest 1V portable [id number]] Routine Exams 10/10/24 07:50 Completed XR hip LT 2-3V wo/w pel* [id number] Stat Exams 10/07/24 11:20 [place] [id number] Stat Exams 10/07/24 11:13 Completed CV. echo complete* [id number] Routine Ultrasound 10/10/24 07:51 Completed Pending at discharge Category Date Time Status Blood Culture Stat Lab 10/11/24 10:55 Results Fecal Occult Blood [Immunochemical Fecal OCB] Routine Lab 10/09/24 12:30 Uncollected Radiology Impressions Humerus X-Ray 10/07/24 11:13 IMPRESSION: No acute findings. Hip/Pelvis X-Ray 10/07/24 11:20 IMPRESSION: No acute findings. Pelvis CT 10/07/24 12:43 IMPRESSION: 1. Displaced fracture left pubic bone. 2. Otherwise no additional bony abnormalities. 3. Diverticulosis of the sigmoid colon. Head CT 10/07/24 14:02 IMPRESSION: No acute intracranial abnormality. Chest X-Ray 10/10/24 07:50 IMPRESSION: COPD, otherwise clear chest. Laboratory Results WBC 15.84 10^3/uL (3.29-11.43) H 10/12/24 04:22 RBC 3.03 10^6/uL (3.85-5.65) L 10/12/24 04:22 Hgb 9.30 g/dL (11.27-16.99) L 10/12/24 04:22 Hct 29.0 % (36-47) L 10/12/24 04:22 MCV 95.7 fl (85-98) 10/12/24 04:22 MCH 30.7 pg (27-33) 10/12/24 04:22 MCHC 32.1 g/dL (30-55) 10/12/24 04:22 RDW 14.6 % (12.1-15.1) 10/12/24 04:22 Plt Count 259 10^3/cmm (157-399) 10/12/24 04:22 MPV 12.1 fL (7.4-10.4) H 10/12/24 04:22 Neut % (Auto) 72.5 % 10/12/24 04:22 Lymph % (Auto) 12.7 % 10/12/24 04:22 Wilkinson % (Auto) 10.9 % 10/12/24 04:22 Eos % (Auto) 2.4 % 10/12/24 04:22 Baso % (Auto) 0.6 % 10/12/24 04:22 Neut # (Auto) 11.50 10^3/uL (1.8-7.7) H 10/12/24 04:22 Lymph # (Auto) 2.0 10^3/uL (0.8-4.8) 10/12/24 04:22 Wilkinson # (Auto) 1.7 10^3/uL (0.2-0.9) H 10/12/24 04:22 Eos # (Auto) 0.4 10^3/uL (0.0-0.8) 10/12/24 04:22 Baso # (Auto) 0.1 10^3/uL (0.0-0.1) 10/12/24 04:22 Nucleated RBC % (auto) 0.1 % 10/12/24 04:22 Nucleated RBCs # 0.0 /100WBC 10/12/24 04:22 Sodium 135 mmol/L (136-145) L 10/12/24 04:22 Potassium 4.6 mmol/L (3.5-5.1) 10/12/24 04:22 Chloride 102 mmol/L (98-107) 10/12/24 04:22 Carbon Dioxide 20 mmol/L (22-29) L 10/12/24 04:22 Anion Gap 17.6 (5-19) 10/12/24 04:22 BUN 24 mg/dL (8-23) H 10/12/24 04:22 Creatinine 0.5 mg/dL (0.5-0.9) 10/12/24 04:22 GFR Calculation Not Reportable 10/12/24 04:22 Glucose 128 mg/dL (65-115) H 10/12/24 04:22 Calculated Osmolality 286 mOsm/kg (285-295) 10/12/24 04:22 Calcium 8.8 mg/dL (8.5-10.5) 10/12/24 04:22 Magnesium 2.5 mg/dL (1.7-2.3) H 10/10/24 05:32 Total Bilirubin 0.6 mg/dL (0.15-1.2) 10/12/24 04:22 AST 38 U/L (0-32) H 10/12/24 04:22 ALT 34 U/L (0-33) H 10/12/24 04:22 Alkaline Phosphatase 63 U/L (35-105) 10/12/24 04:22 Total Protein 6.3 g/dL (6.6-8.7) L 10/12/24 04:22 Albumin 2.9 g/dL (3.5-5.2) L 10/12/24 04:22 Globulin 3.4 g/dL (1.3-4.6) 10/12/24 04:22 Urine Color Yellow (Yellow) 10/11/24 10:40 Urine Appearance Clear (CLEAR) 10/11/24 10:40 Urine pH 6.5 (5-7) 10/11/24 10:40 Ur Specific [place] 1.022 (1.005-1.030) 10/11/24 10:40 Urine Protein Trace (Negative) A 10/11/24 10:40 Urine Glucose (UA) 1+ (Normal) H 10/11/24 10:40 Urine Ketones Negative (Negative) 10/11/24 10:40 Urine Blood Non-haemolysed trace (Negative) 10/11/24 10:40 Urine Nitrate Positive (Negative) A 10/11/24 10:40 Urine Bilirubin Negative (Negative) 10/11/24 10:40 Urine Urobilinogen 1.0 mg/dL (Negative) 10/11/24 10:40 Ur Leukocyte Esterase 2+ (Negative) A 10/11/24 10:40 Urine RBC 3-5 /hpf (0-2) 10/11/24 10:40 Urine WBC >100 /hpf (0-5) H 10/11/24 10:40 Ur Squamous Epith Cells 0-5 /hpf (0-5) 10/11/24 10:40 Amorphous Sediment Not Reportable 10/11/24 10:40 Urine Bacteria 4+ /hpf (NONE) H 10/11/24 10:40 Hyaline Casts 0.40 /lpf 10/11/24 10:40 Influenza A (PCR) Negative (Negative) 10/07/24 16:53 Influenza Type B (PCR) Negative (Negative) 10/07/24 16:53 RSV (PCR) Negative (Negative) 10/07/24 16:53 SARS-CoV-2 (PCR) Negative (Negative) 10/07/24 16:53 Vitals Last Vital Signs Temp 98.8 F 10/13/24 11:16 Pulse 67 10/13/24 11:16 Resp 18 10/13/24 11:16 BP 114/67 10/13/24 11:16 Pulse Ox 93 10/13/24 11:16 O2 Del Method Room Air 10/13/24 11:16 Discharge Plan Discharge Patient Disposition: Xfer SNF Condition: Stable Prescriptions: New olanzapine 5 mg Tablet 5 mg PO BEDTIME 30 Days Qty: 30 0RF cefuroxime axetil 500 mg tablet 500 mg PO Q12H 7 Days Qty: 14 0RF ibuprofen 600 mg tablet 600 mg PO Q8H PRN (Reason: fever or pain) Qty: 20 0RF Continued aspirin [Adult Aspirin Regimen] 81 mg tablet,delayed release (DR/EC) 81 mg PO DAILY Qty: 90 0RF fluoxetine 20 mg capsule 20 mg PO DAILY Qty: 30 11RF atorvastatin 40 mg tablet 40 mg PO DAILY metoprolol succinate 50 mg tablet extended release 24 hr 50 mg PO DAILY Discontinued tramadol-acetaminophen 37.5-325 mg tablet 1 tab PO Q6H PRN (Reason: pain) 5 Days Qty: 20 0RF Discharge Orders: Discharge Order (Routine); Ordered 10/13/24 Ordered By: Soraya Velazquez Referrals: Keny Jimenez MD [Primary Care Provider, [facility]] - 10/19/24 12:50 pm Discharge Diet: Usual diet Discharge Activity: As per PT/OT instructions Discharge Attestations Time Spent in Discharge Care*: greater than 30 min Quality Metrics Clinical Quality Measures [ No reported AMI, CVA or VTE this stay] Coding Level of Care Code Acute Code for Chg Fwd Diagnoses Age-related cognitive decline R41.81 Difficulty in walking R26.2 Fracture of humerus S42.309A Encounter type: initial encounter Fracture alignment: displaced Fracture type: closed Humerus Location: proximal Laterality: left Other closed fracture of left pubis, initial encounter S32.592A Encounter type: initial encounter Fracture type: closed Laterality: left Sublocation of pubis: other portion of pubis Leukocytosis D72.823 Leukocytosis type: leukemoid reaction Chronic atrial fibrillation I48.20 Atrial fibrillation type: unspecified chronic Mixed hyperlipidemia E78.2 Hyperlipidemia type: mixed hyperlipidemia
--- NOTE | 2024-10-13 13:00 | PC.NURSE ---
Report called to [facility] at 1245 and ready transport picked patient up at 1250 to take to facility.
[2024-10-13 13:03] VITALS: BP 114/67; PULSE 67; RESP 16; TEMP 37.1; O2SAT 93
== END 2024-10-13 12:55 | disposition skilled nursing facility (03) | DRG 562 ==
LOC: ER 14:14 → ER IP 16:02 → ICU 17:52 → MEDSURG 10-09 17:16
PROVIDERS: Family Medicine; Admitting Provider Student in an Organized Health Care Education/Training Program; Emergency Provider Student in an Organized Health Care Education/Training Program; PCP Family Medicine; Visit Provider Student in an Organized Health Care Education/Training Program
DX: S42.202A Unspecified fracture of upper end of left humerus, initial encounter for closed fracture (principal); G92.8 Other toxic encephalopathy; S32.502A Unspecified fracture of left pubis, initial encounter for closed fracture; I48.20 Chronic atrial fibrillation, unspecified; F84.0 Autistic disorder; N39.0 Urinary tract infection, site not specified; W19.XXXA Unspecified fall, initial encounter; Z91.81 History of falling; Y92.009 Unspecified place in unspecified non-institutional (private) residence as the place of occurrence of the external cause; R41.81 Age-related cognitive decline; R26.2 Difficulty in walking, not elsewhere classified; E78.5 Hyperlipidemia, unspecified; R62.50 Unspecified lack of expected normal physiological development in childhood; T40.605A Adverse effect of unspecified narcotics, initial encounter; Y92.239 Unspecified place in hospital as the place of occurrence of the external cause; B96.20 Unspecified Escherichia coli [E. coli] as the cause of diseases classified elsewhere; Z79.82 Long term (current) use of aspirin
CPT/HCPCS: 36415; 51702; 51798; 70450; 71045; 72192; 73030; 73060; 73080; 73110; 73502; 80048; 80053; 81001; 83735; 85025; 87040; 87077; 87086; 87186; 87637; 93306; 96361; 96372; 96374; 97161; 97167; 97530; 97535; 99284; 99285; J0696; J1630; J1644; J1885; J3475; J3490; J7040; J9999

== ENCOUNTER → 2024-10-31 13:34 | Outpatient (BNVA) | payer MEDICARE, OTHER, SELFPAY | PROVIDERS: PCP Family Medicine; Visit Provider Orthopaedic Surgery | DX: S42.292P Other displaced fracture of upper end of left humerus, subsequent encounter for fracture with malunion (principal); S32.592D Other specified fracture of left pubis, subsequent encounter for fracture with routine healing; W19.XXXD Unspecified fall, subsequent encounter | CPT/HCPCS: 73060; 99214 ==

== ENCOUNTER → 2024-11-27 10:38 | Outpatient (BNVA) | payer MEDICARE, OTHER, SELFPAY | PROVIDERS: PCP Family Medicine; Visit Provider Orthopaedic Surgery | DX: S42.292P Other displaced fracture of upper end of left humerus, subsequent encounter for fracture with malunion (principal); X58.XXXD Exposure to other specified factors, subsequent encounter | CPT/HCPCS: 73060; 99213 ==

== ENCOUNTER → 2025-01-02 07:50 | Outpatient (BNVA) | payer MEDICARE, OTHER, SELFPAY | PROVIDERS: PCP Family Medicine; Visit Provider Podiatrist Foot & Ankle Surgery | DX: I73.9 Peripheral vascular disease, unspecified (principal); L60.3 Nail dystrophy; M79.671 Pain in right foot; M79.672 Pain in left foot | CPT/HCPCS: 11721; 99204 ==

== ENCOUNTER → 2025-01-29 08:54 | Outpatient (BNVA) | payer MEDICARE, OTHER, SELFPAY | PROVIDERS: PCP Family Medicine; Visit Provider Orthopaedic Surgery | DX: S42.292P Other displaced fracture of upper end of left humerus, subsequent encounter for fracture with malunion (principal); X58.XXXD Exposure to other specified factors, subsequent encounter | CPT/HCPCS: 73060; 99213 ==